=== PATIENT | male | born 1955 | race Caucasian/White ===

== ENCOUNTER 2018-11-13 21:54 | Inpatient (IN) | payer OTHER, MEDICARE ==
[~2018-11-13] VITALS: Ht 180.3 cm; Wt 77.2 kg
[2018-11-13] MEDS ORDERED: AMLO10 PO (22:08)
[2018-11-13] MEDS ORDERED: ROSU5 PO (22:09)
[2018-11-13] MEDS ORDERED: CARV6.25 PO (22:09)
[2018-11-13] MEDS ORDERED: Isosorbide Mono30 MG PO (22:09)
[2018-11-13] MEDS ORDERED: ASPI81CH PO (22:09)
[2018-11-13 22:17] LABS: BASOPHILS ABSOLUTE AUTO 0.11 K/mm3 (0.00-0.23); BASOPHILS PERCENT AUTO 1 % (0-2); EOSINOPHILS ABSOLUTE AUTO 0.89 K/mm3 (0.00-0.68); EOSINOPHILS PERCENT AUTO 7 % (0-6); Hematocrit 42.3 % (37.0-53.0); Hemoglobin 14.2 g/dL (13.5-17.5); IMMATURE GRAN ABSOLUTE AUTO 0.03 K/mm3 (0.00-0.10); IMMATURE GRAN PERCENT AUTO 0 % (0-1); LYMPHOCYTES ABSOLUTE AUTO 4.81 K/mm3 (0.84-5.20); LYMPHOCYTES PERCENT AUTO 38 % (21-46); MONOCYTES ABSOLUTE AUTO 1.13 K/mm3 (0.16-1.47); MONOCYTES PERCENT AUTO 9 % (4-13); Mean Corpuscular HGB Conc 33.6 g/dL (31.5-36.5); Mean Corpuscular Volume 95 fL (80-100); Mean Platelet Volume 10.8 fL (9.1-12.4); NEUTROPHILS ABSOLUTE AUTO 5.68 K/mm3 (1.96-9.15); NEUTROPHILS PERCENT AUTO 45 % (41-73); Platelet Count 213 K/mm3 (150-400); RDW Coefficient Variation 12.6 % (11.7-14.2); RDW Standard Deviation 44.4 fL (35.1-46.3); Red Blood Cell Count 4.44 M/mm3 (4.30-5.90); White Blood Cell Count 12.65 K/mm3 (4.00-11.30)
[2018-11-13 22:41] LABS: Alanine Aminotransfer (ALT/SGP 19 U/L (12-78); Albumin, Blood 3.4 g/dL (3.4-5.0); Alk Phos 71 U/L (50-136); Anion Gap 4 mmol/L (6-16); Aspartate Aminotrans (AST/SGOT 15 U/L (12-37); Bilirubin, Total 0.4 mg/dL (0.1-1.0); Blood Urea Nitrogen 27 mg/dL (8-24); Bun/Creatinine Ratio 14.5 (12.0-20.0); CO2, Blood 26 mmol/L (21-32); Calcium, Blood 8.5 mg/dL (8.5-10.1); Chloride, Blood 113 mmol/L (98-108); Creatinine, Blood 1.86 mg/dL (0.60-1.20); Globulin, Blood 3.4 g/dL (2.2-4.0); Glomerular Filtration Rate 39 (60-); Glucose, Blood 100 mg/dL (70-99); Potassium, Blood 4.2 mmol/L (3.5-5.5); Sodium, Blood 143 mmol/L (136-145); Total Protein, Blood 6.8 g/dL (6.4-8.2); Troponin I <0.015 ng/mL (0.000-0.040)
[2018-11-13 22:57] LABS: International Normalized Ratio 0.96; Prothrombin Time Results 10.2 Sec (9.7-11.5)
--- NOTE | 2018-11-13 23:24 | NUR ---
REPORT RECEIVED FROM BRIAN HUGGINS RN
--- NOTE | 2018-11-13 23:54 | NUR ---
NOTIFIED MD: NOTIFIED DR. COOK THAT D-DIMER ELEVATED AT 0.68. ASKED IF HE STILL WANTS THE HEPARIN GTT OFF AND HE SAID YES, KEEP IT OFF. ASKED IF HE WANTED A CT SCAN, HE SAID NO, JUST TO MONITOR AT THIS POINT. STATES THAT HE FEELS THAT THE ELEVATED D-DIMER IS IN RESPONSE TO HIM BEING HTN.
[2018-11-14 06:12] LABS: Hematocrit 44.1 % (37.0-53.0); Hemoglobin 14.8 g/dL (13.5-17.5); Mean Corpuscular HGB 31.2 pg (26.0-34.0); Mean Corpuscular HGB Conc 33.6 g/dL (31.5-36.5); Mean Corpuscular Volume 93 fL (80-100); Mean Platelet Volume 10.5 fL (9.1-12.4); Platelet Count 205 K/mm3 (150-400); RDW Coefficient Variation 12.5 % (11.7-14.2); Red Blood Cell Count 4.74 M/mm3 (4.30-5.90); White Blood Cell Count 13.45 K/mm3 (4.00-11.30)
--- NOTE | 2018-11-14 06:21 | NUR ---
SUMMARY SINCE ARRIVAL TO ICU, BLOOD PRESSURE HAS BEEN SLIGHTLY ELEVATED BUT NOT REQUIRING NITRO DRIP. MANAGED WITH PO METOPROLOL. SEE FLOWSHEET. HR 60'S. PT HAS HAD NO FURTHER EPISODES OF SHORTNESS OF BREATH OR CHEST PAIN. THIS MORNING PT REPEATEDLY STATING, "I'M READY TO GO HOME. I FEEL GREAT." PT CALLING APPROPRIATELY FOR NEEDS.
[2018-11-14 06:32] LABS: Albumin, Blood 3.5 g/dL (3.4-5.0); Bilirubin, Total 0.6 mg/dL (0.1-1.0); Bun/Creatinine Ratio 15.2 (12.0-20.0); Calcium, Blood 8.9 mg/dL (8.5-10.1); Creatinine, Blood 1.45 mg/dL (0.60-1.20); Globulin, Blood 3.5 g/dL (2.2-4.0); Potassium, Blood 4.2 mmol/L (3.5-5.5)
[2018-11-14 06:45] LABS: Troponin I 0.583 ng/mL (0.000-0.040)
--- NOTE | 2018-11-14 07:33 | NUR ---
ASSUMED CARE: PT RESTING QUIETLY IN BED. VSS. DENIES CHEST PAIN. DR SANTANA AT BEDSIDE AT THIS TIME.
--- NOTE | 2018-11-14 08:16 | NUR ---
DR SANTANA LEFT PT'S ROOM AND STATED PT WAS HAVING CP 03/07. WENT IN TO SEE PT AND PT STATED CHEST PAIN WAS VARYING BETWEEN 3/10 AND 8/10. EKG DONE AND IN CHART, SHOWN TO DR SANTANA. DR SANTANA SPOKE WITH DR CATHERINE FOR CARDIOLOGY CONSULT. PT NPO
--- NOTE | 2018-11-14 09:52 | NUR ---
HEPARIN GTT STARTED AT 0810 WITH BAG THAT WAS STOPPED LAST PM. VERIFIED WITH SARMAD WADSWORTH. PT HAS NO C/O CHEST PAIN AT THIS TIME. AND PT HAVE BEEN GIVEN UPDATES, AWAITING CARDIOLOGY. NPO EXCEPT MEDS AT THIS TIME.
--- NOTE | 2018-11-14 10:21 | NUR ---
PT CONTINUES TO C/O CHEST PAIN UP TO 11/05. CALL TO DR SANTANA. INSTRUCTIONS TO PUT PT BACK ON NITRO GTT UNTIL CARDIOLOGY CONSULTS ON PT.
--- NOTE | 2018-11-14 10:42 | NUR ---
ECHOCARDIOGRAM COMPLETED
--- NOTE | 2018-11-14 12:30 | NUR ---
DR CATHERINE CAME TO SEE PT AND STATED THAT PT WOULD BE ADDED ON TO SCHEDULE, HOPEFULLY TO BE DONE TODAY. ORDERS FOR ANTIALLERGY MEDS DUE TO ALLERGY TO IODINE. CALL TO HEART CENTER TO HAVE STAFF GIVE HOUR HEADSUP BEFORE PROCEDURE IN ORDER TO GIVE BENADRYL PER ORDERS. PT AND STAFF AWARE AND REQUESTED MEDICATIONS FOR ANXIETY. CALL TO DR SANTANA, AWAITING NEW ORDERS
--- NOTE | 2018-11-14 15:31 | NUR ---
PT TAKEN TO HEART CENTER FOR PROCEDURE AT THIS TIME. FAMILY AWARE
[2018-11-14 15:51] LABS: Troponin I 0.545 ng/mL (0.000-0.040)
--- NOTE | 2018-11-14 18:19 | NUR ---
SHIFT SUMMARY: PT RETURNED FROM TOWEL ROLLING MACHINE OPERATOR AT 1717. NITRO GTT RUNNING, PT STATES CP 2-05/05. CONFUSED, LETHARGIC. BPS NOTED TO BE 170S SYSTOLIC. CALL TO DR STEIN ABOUT BPS. ORDERS TO TITRATE NITRO FOR SBP 140S. BED ALARM ON FOR CONFUSION, TR TO RIGHT WRIST, NO BRUISING OR HEMATOMA AT THIS TIME. FAMILY AT BEDSIDE
--- NOTE | 2018-11-14 21:00 | NUR ---
AGITATION/CONFUSION RESPONDED TO BED ALARM GOING OFF. UPON ENTERING ROOM, PT GETTING OUT OF BED, PULLING ON WIRES/LINES. ATTEMPTED TO REDIRECT PATIENT. PT BECAME AGITATED, YELLING AND SWINGING AT STAFF. EVENTUALLY ABLE TO REDIRECT PT TO SIT AT EDGE OF BED AFTER DISCONTINUING ALL IV AND MONITOR LINES. PT UNSURE OF DAY, LOCATION OR SITUATION. PT PARANOID WHEN STAFF ATTEMPTS TO APPROACH HIM. CALLED AND TO BEDSIDE AND ABLE TO REDIRECT PT TO BED. UPDATED DR. STEIN, TITLE I COORDINATOR THAT PT CURRENTLY REFUSING ALL MONITORS AND MEDICATION. ONE TIME DOSE OF HALDOL GIVEN. AFTER HALDOL WAS GIVEN, PT CONTINUED TO BE PARANOID AND TEARFUL BUT DROWSY. ALLOWING TO TALK WITH HIM AND BE CLOSE BUT BECOMES EXTREMELY AGITATED AND PARANOID WHEN STAFF ATTEMPT TO. PT WILL ANSWER A FEW QUESTIONS AT A TIME WITH ONE WORD ANSWERS BUT DISENGAGES AFTER A FEW QUESTIONS. THOUGH PT NOT FOLLOWING RADIAL ACCESS SITE PRECAUTIONS, SITE CONTINUES TO BE CLEAN, DRY AND IN TACT. NO SIGN OF HEMATOMA. PT LEFT WITH BED ALARM IN PLACE, CALL LIGHT IN REACH.
--- NOTE | 2018-11-15 | NUR ---
UPDATE SINCE PREVIOUS NOTE, PT HAS BECOME LESS CONFUSED. HAS LEFT AND PT HAS BEEN RESTING QUIETLY. HE AROUSES EASILY AND STATES HE IS IN [place]. HE IS STILL UNWILLING TO ANSWER ALL ORIENTATION QUESTIONS, BUT IS MAKING OCCASIONAL JOKES. PT DID SET OFF BED ALARM ONCE, AND WHEN ATTEMPTED TO ASSIST HIM USE URINAL HE ONCE AGAIN BECAME AGITATED AND TOLD STAFF TO LEAVE ROOM. PT STATED HE WAS GOING BACK TO SLEEP. A FEW MINUTES AFTER, PT CLIMBING OUT OF BED AND STATES "I AM NOT PEEING WITH YOU IN HERE." SET UP PT WITH URINAL AND ORGANIZED CORS/LINES FOR EASE AND ALLOWED PT PRIVACY. PT STOOD AND USED URINAL SUCCESSFULLY. TR BAND BEING DEFLATED PT ALLOWS. CONTINUES TO HAVE NO SIGNS OF HEMATOMA AND CMS REMAINS IN TACT. PT BACK ON NITROCGLYCERIN DRIP FOR BP MANAGEMENT.
--- NOTE | 2018-11-15 05:58 | NUR ---
SUMMARY SINCE PREVIOUS NOTE, PT HAS SLEPT INTERMITTENTLY, AROUSES EASILY FOR REASSESSMENTS AND HAS ALLOWED ALL CARES TO TAKE PLACE. PT CALM, COOPERATIVE AND ORIENTED. RADIAL CUFF DEFLATED AND OPSITE DRESSING APPLIED. SITE REMAINS SOFT, NONTENDER AND FREE OF HEMATOMA. PT'S BLOOD PRESSURE CONTINUES TO BE ELEVATED THIS MORNING. NITRO TITRATED. SEE FLOWSHEETS. PT ALSO GIVEN MORNING CARDIAC MEDS EARLY PT DID NOT TAKE EVENING DOSES.
--- NOTE | 2018-11-15 07:45 | NUR ---
BEDSIDE REPORT REC'D AND NOW ASSUMING CARE OF PT. PT ALERT AND ORIENTED X3. SOMEWHAT FLAT AFFECT, BUT COOPERATIVE WITH CARE. PT SBA TO USE URINAL/TOILET. LUNGS ARE DIMINISHED T/O, W/ EXP WHEEZES IN THE LLL. HR REGULAR, DISTANT, SR-70'S RANGE. NTG GTT @ 15MCG/MIN TO MANAGE BP'S (SEE VS FLOWSHEET). WILL ATTEMPT TO WEAN OFF NTG, AND CONTROL BP'S WITH PO MEDICATIONS. -FULL CODE STATUS -WEAN NTG GTT -POTENTIAL DISCHARGE TODAY.
[2018-11-15 08:19] LABS: Bun/Creatinine Ratio 21.8 (12.0-20.0); Calcium, Blood 9.2 mg/dL (8.5-10.1); Creatinine, Blood 1.33 mg/dL (0.60-1.20); Potassium, Blood 3.9 mmol/L (3.5-5.5)
--- NOTE | 2018-11-15 12:15 | NUR ---
CALLED DR SANTANA RE: ELEVATED BP'S. ADDED LISINOPRIL 10MG PO NOW AND WILL CONTINUE TO MONITOR BP'S. PT IS VERY EAGER TO BE DISCHARGED HOME AND STATES, "MY BLOOD PRESSURE WOULD IMPROVE IF I WASN'T STUCK IN THIS HOSPITAL BED." DR SANTANA REPORTS PT CAN DISCHARGE HOME IF LISINOPRIL KEEPS HIS SBP 150-160'S OR LESS.
[2018-11-15] MEDS ORDERED: AMLO10 PO (13:54)
[2018-11-15] MEDS ORDERED: Prinivil10 MG PO (13:56)
[2018-11-15] MEDS ORDERED: CLOP75 PO (13:56)
[2018-11-15] MEDS ORDERED: METO50 PO (13:56)
--- NOTE | 2018-11-15 14:25 | NUR ---
PT DISCHARGED VIA W/C BY JEANINE MOTA. TO TRANSPORT PT HOME. PT SENT WITH D/C ORDERS, F/U INSTRUCTIONS, MEDICATIONS, AND PT BELONGINGS SENT WITH PT.
--- NOTE | 2018-11-15 14:27 | NUR ---
DISCHARGE DISCHARGE INSTRUCTIONS PROVIDED TO PT. DISCUSSED IMPORTANCE OF MEDICATION REGIMEN AND KEEPING FOLLOW-UP APPOINTMENTS. IV'S QING'Renetta.
== END 2018-11-15 14:38 | disposition home or self-care (01) | DRG 246 ==
LOC: ER 21:54 → ICUW 21:55
PROVIDERS: Emergency Medicine; Internal Medicine; ADMIT Internal Medicine
PROC: 4A023N7 Measurement of Cardiac Sampling and Pressure, Left Heart, Percutaneous Approach (ICD-10-PCS; principal; 2018-11-14)
PROC: 027034Z Dilation of Coronary Artery, One Artery with Drug-eluting Intraluminal Device, Percutaneous Approach (ICD-10-PCS; 2018-11-14)
PROC: B210YZZ Fluoroscopy of Single Coronary Artery using Other Contrast (ICD-10-PCS; 2018-11-14)
DX: I16.0 Hypertensive urgency (principal); I21.4 Non-ST elevation (NSTEMI) myocardial infarction; I25.10 Atherosclerotic heart disease of native coronary artery without angina pectoris; N18.3 Chronic kidney disease, stage 3 (moderate); I12.9 Hypertensive chronic kidney disease with stage 1 through stage 4 chronic kidney disease, or unspecified chronic kidney disease; J44.9 Chronic obstructive pulmonary disease, unspecified; F12.20 Cannabis dependence, uncomplicated; Z95.5 Presence of coronary angioplasty implant and graft
CPT/HCPCS: 36415; 71045; 80048; 80053; 82550; 83690; 83880; 84484; 85025; 85027; 85347; 85379; 85610; 85730; 93005; 93010; 93306; 93454; 96365; 96375; 99152; 99153; 99285-25; C1725; C1769; C1874; C1887; C1894; C9600; G0378; J1170; J1630; J1644; J1720; J2060; J2250; J2405; J3010; J7030; J7040; J7050; J7512; Q0163; Q9967

== ENCOUNTER 2019-11-28 14:26 | Inpatient (IN) | payer OTHER, MEDICARE ==
[~2019-11-28] VITALS: Ht 182.9 cm; Wt 79.4 kg
[~2019-11-28 14:26] MED LIST: AMLO10 PO; CARV6.25 PO; CLOP75 PO
[2019-11-28 15:07] LABS: BASOPHILS ABSOLUTE AUTO 0.14 K/mm3 (0.00-0.23); BASOPHILS PERCENT AUTO 1 % (0-2); EOSINOPHILS ABSOLUTE AUTO 0.24 K/mm3 (0.00-0.68); EOSINOPHILS PERCENT AUTO 1 % (0-6); Hematocrit 45.7 % (37.0-53.0); Hemoglobin 15.6 g/dL (13.5-17.5); IMMATURE GRAN PERCENT AUTO 1 % (0-1); LYMPHOCYTES ABSOLUTE AUTO 4.88 K/mm3 (0.84-5.20); LYMPHOCYTES PERCENT AUTO 27 % (21-46); MONOCYTES PERCENT AUTO 12 % (4-13); Mean Corpuscular HGB 31.8 pg (26.0-34.0); Mean Corpuscular HGB Conc 34.1 g/dL (31.5-36.5); Mean Corpuscular Volume 93 fL (80-100); NEUTROPHILS ABSOLUTE AUTO 10.62 K/mm3 (1.96-9.15); NEUTROPHILS PERCENT AUTO 58 % (41-73); Platelet Count 258 K/mm3 (150-400); RDW Coefficient Variation 12.3 % (11.7-14.2); RDW Standard Deviation 42.5 fL (35.1-46.3); White Blood Cell Count 18.18 K/mm3 (4.00-11.30)
[2019-11-28 15:48] LABS: Albumin, Blood 3.8 g/dL (3.4-5.0); Albumin/Globulin Ratio 0.9 (0.8-1.8); Bilirubin, Total 0.8 mg/dL (0.1-1.0); Bun/Creatinine Ratio 16.7 (12.0-20.0); Calcium, Blood 9.7 mg/dL (8.5-10.1); Creatinine, Blood 2.09 mg/dL (0.60-1.20); Globulin, Blood 4.1 g/dL (2.2-4.0); Potassium, Blood 4.6 mmol/L (3.5-5.5); Total Protein, Blood 7.9 g/dL (6.4-8.2)
[2019-11-28] MEDS ORDERED: Isosorbide Mono30 MG PO (15:51)
[2019-11-28] MEDS ORDERED: Aspir 8181 MG PO (15:52)
[2019-11-28] MEDS ORDERED: Crestor40 MG PO (15:52)
[2019-11-28] MEDS ORDERED: AMLO10 PO (15:52)
[2019-11-28] MEDS ORDERED: METO50 PO (15:53)
[2019-11-28] MEDS ORDERED: NITR.4SL SL (15:54)
[2019-11-28] MEDS ORDERED: TRAM50 PO (15:55)
[2019-11-28] MEDS ORDERED: ALBU90OI INH (15:55)
[2019-11-28] MEDS ORDERED: ONDA4ODT SL (15:56)
[2019-11-28] MEDS ORDERED: LISI5 PO (16:00)
[2019-11-28 16:01] LABS: Troponin I 12.4 ng/mL (0.000-0.040)
[2019-11-29 01:30] LABS: BASOPHILS ABSOLUTE AUTO 0.09 K/mm3 (0.00-0.23); BASOPHILS PERCENT AUTO 1 % (0-2); EOSINOPHILS ABSOLUTE AUTO 0.13 K/mm3 (0.00-0.68); EOSINOPHILS PERCENT AUTO 1 % (0-6); Hematocrit 43.5 % (37.0-53.0); Hemoglobin 14.8 g/dL (13.5-17.5); IMMATURE GRAN ABSOLUTE AUTO 0.04 K/mm3 (0.00-0.10); IMMATURE GRAN PERCENT AUTO 0 % (0-1); LYMPHOCYTES ABSOLUTE AUTO 3.82 K/mm3 (0.84-5.20); LYMPHOCYTES PERCENT AUTO 27 % (21-46); MONOCYTES ABSOLUTE AUTO 1.54 K/mm3 (0.16-1.47); MONOCYTES PERCENT AUTO 11 % (4-13); Mean Corpuscular HGB 31.4 pg (26.0-34.0); Mean Corpuscular Volume 92 fL (80-100); Mean Platelet Volume 10.4 fL (9.1-12.4); NEUTROPHILS ABSOLUTE AUTO 8.67 K/mm3 (1.96-9.15); NEUTROPHILS PERCENT AUTO 61 % (41-73); Platelet Count 220 K/mm3 (150-400); RDW Coefficient Variation 12.1 % (11.7-14.2); RDW Standard Deviation 41.6 fL (35.1-46.3); Red Blood Cell Count 4.72 M/mm3 (4.30-5.90); White Blood Cell Count 14.29 K/mm3 (4.00-11.30)
[2019-11-29 02:01] LABS: Bun/Creatinine Ratio 20.6 (12.0-20.0); Calcium, Blood 8.9 mg/dL (8.5-10.1); Creatinine, Blood 1.8 mg/dL (0.60-1.20); Potassium, Blood 4.4 mmol/L (3.5-5.5)
[2019-11-29 02:47] LABS: Troponin I 13.5 ng/mL (0.000-0.040)
== END 2019-11-29 16:21 | disposition short-term general hospital (02) | DRG 281 ==
LOC: ER 14:26 → PCU 20:27
PROVIDERS: Emergency Medicine; Nurse Practitioner Acute Care; ADMIT Hospitalist
DX: I22.2 Subsequent non-ST elevation (NSTEMI) myocardial infarction (principal); N17.9 Acute kidney failure, unspecified; I25.110 Atherosclerotic heart disease of native coronary artery with unstable angina pectoris; I21.4 Non-ST elevation (NSTEMI) myocardial infarction; N18.30 Chronic kidney disease, stage 3 unspecified; Z98.1 Arthrodesis status; J44.9 Chronic obstructive pulmonary disease, unspecified; Z95.5 Presence of coronary angioplasty implant and graft; K59.00 Constipation, unspecified; B19.20 Unspecified viral hepatitis C without hepatic coma; Z91.041 Radiographic dye allergy status; I12.9 Hypertensive chronic kidney disease with stage 1 through stage 4 chronic kidney disease, or unspecified chronic kidney disease; E78.5 Hyperlipidemia, unspecified; D72.829 Elevated white blood cell count, unspecified; Z79.82 Long term (current) use of aspirin; Z87.891 Personal history of nicotine dependence
CPT/HCPCS: 36415; 71045; 78580; 80048; 80053; 84484; 85025; 85379; 90670; 93005; 93010; 96374; 96375; 99285-25; A9270; A9270-GY; A9540; J2405; J3010; J7030; Q2038; U0003

== ENCOUNTER 2019-12-10 06:05 | Day surgery (SDC) | payer MEDICARE ==
[~2019-12-10] VITALS: Ht 180.3 cm; Wt 80.0 kg
[~2019-12-10 06:05] MED LIST changes: +ALBU90OI INH; +Aspir 8181 MG PO; +Crestor40 MG PO; +Isosorbide Mono30 MG PO; +LISI5 PO; +METO50 PO; +NITR.4SL SL; +ONDA4ODT SL; +OXYC5 PO; +TRAM50 PO
--- NOTE | 2019-12-10 08:14 | NUR ---
PT RETURNED TO RECOVERY ROOM IN RECLINER WITH RIGHT RADIAL TR BAND IN PLACE WITH WRIST BOARD. RIGHT RADIAL SITE SOFT NON-TENDER WITH NO HEMATOMA, NO PULSATILE BLEEDING AND INTACT DRESSING. PT DENIES CHEST PAIN. PT DRINKING COFFEE AND CALL LIGHT IN REACH.
[2019-12-10] MEDS ORDERED: TICA90TA PO (09:11)
--- NOTE | 2019-12-10 10:12 | NUR ---
5 CC OF AIR REMOVED OVER 13 MIN FROM NOW DEFLATED RIGHT RADIAL TR BAND; NO HEMATOMA, NO PULSATILE BLEEDING SOFT NON-TENDER. DISCHARGE INSTRUCTIONS REVIEWED ALL QUESTIONS ANSWERED.
--- NOTE | 2019-12-10 10:33 | NUR ---
NO CHANGES TO DEFLATED RIGHT TR BAND SITE.
--- NOTE | 2019-12-10 11:12 | NUR ---
DEFLATED RIGHT TR BAND REMOVED AND POLYMEM PLACED OVER RIGHT RADIAL SITE; NO HEMATOMA, NO PULSATILE BLEEDING SOFT NON-TENDER. 20 G IV DISCONTINUED FROM LEFT AC WITH INTACT CANNULA. PT ESCORTED OUT VIA WHEELCHAIR ESCORT.
== END 2019-12-10 11:05 | disposition home or self-care (01) ==
LOC: MHTC 06:05
PROC: B201YZZ Plain Radiography of Multiple Coronary Arteries using Other Contrast (ICD-10-PCS; principal; 2019-12-10)
PROC: 4A023N7 Measurement of Cardiac Sampling and Pressure, Left Heart, Percutaneous Approach (ICD-10-PCS; principal; 2019-12-10)
DX: I21.4 Non-ST elevation (NSTEMI) myocardial infarction (principal); T82.855A Stenosis of coronary artery stent, initial encounter; Y83.1 Surgical operation with implant of artificial internal device as the cause of abnormal reaction of the patient, or of later complication, without mention of misadventure at the time of the procedure; J44.9 Chronic obstructive pulmonary disease, unspecified; Z88.5 Allergy status to narcotic agent; Z91.041 Radiographic dye allergy status; I25.119 Atherosclerotic heart disease of native coronary artery with unspecified angina pectoris; I12.9 Hypertensive chronic kidney disease with stage 1 through stage 4 chronic kidney disease, or unspecified chronic kidney disease; N18.9 Chronic kidney disease, unspecified; K21.9 Gastro-esophageal reflux disease without esophagitis; Z79.899 Other long term (current) drug therapy; Z79.82 Long term (current) use of aspirin; B19.20 Unspecified viral hepatitis C without hepatic coma
CPT/HCPCS: 85347; 92920; 93458; 99152; 99153; C1725; C1769; C1887; C1894; J1200; J1644; J1720; J2250; J3010; J7030; J7050; Q9967

== ENCOUNTER 2021-04-16 14:28 | Inpatient (IN) | payer OTHER ==
[~2021-04-16] VITALS: Ht 182.9 cm; Wt 86.0 kg
[~2021-04-16 14:28] MED LIST changes: -Crestor40 MG PO; +METO25ER PO; -METO50 PO; +ROSU10TA PO; +TICA90TA PO
[2021-04-16 15:06] LABS: BASOPHILS ABSOLUTE AUTO 0.11 K/mm3 (0.00-0.23); BASOPHILS PERCENT AUTO 1 % (0-2); EOSINOPHILS ABSOLUTE AUTO 0.38 K/mm3 (0.00-0.68); EOSINOPHILS PERCENT AUTO 3 % (0-6); Hematocrit 45.9 % (37.0-53.0); Hemoglobin 15.1 g/dL (13.5-17.5); IMMATURE GRAN ABSOLUTE AUTO 0.04 K/mm3 (0.00-0.10); IMMATURE GRAN PERCENT AUTO 0 % (0-1); LYMPHOCYTES ABSOLUTE AUTO 3.65 K/mm3 (0.84-5.20); LYMPHOCYTES PERCENT AUTO 31 % (21-46); MONOCYTES ABSOLUTE AUTO 0.93 K/mm3 (0.16-1.47); MONOCYTES PERCENT AUTO 8 % (4-13); Mean Corpuscular HGB 31.6 pg (26.0-34.0); Mean Corpuscular HGB Conc 32.9 g/dL (31.5-36.5); Mean Corpuscular Volume 96 fL (80-100); Mean Platelet Volume 10.9 fL (9.1-12.4); NEUTROPHILS ABSOLUTE AUTO 6.59 K/mm3 (1.96-9.15); NEUTROPHILS PERCENT AUTO 57 % (41-73); Platelet Count 277 K/mm3 (150-400); RDW Coefficient Variation 13.5 % (11.7-14.2); RDW Standard Deviation 48.5 fL (35.1-46.3); Red Blood Cell Count 4.78 M/mm3 (4.30-5.90)
[2021-04-16 15:22] LABS: Albumin, Blood 3.8 g/dL (3.4-5.0); Bilirubin, Total 0.8 mg/dL (0.1-1.0); Bun/Creatinine Ratio 11.8 (12.0-20.0); Calcium, Blood 9.7 mg/dL (8.5-10.1); Creatinine, Blood 1.44 mg/dL (0.60-1.20); Globulin, Blood 3.8 g/dL (2.2-4.0); Potassium, Blood 4.4 mmol/L (3.5-5.5); Total Protein, Blood 7.6 g/dL (6.4-8.2)
[2021-04-16 18:03] LABS: Influenza A, PCR NEGATIVE (NEGATIVE); Influenza B, PCR NEGATIVE (NEGATIVE); Resp Syncytial Virus, PCR NEGATIVE (NEGATIVE); SARS-Cov-2 (COVID-19) PCR, MMC NEGATIVE (NEGATIVE)
--- NOTE | 2021-04-16 22:07 | NUR ---
CALLED Vidya SERRA REGARDING PT'S NAUSEA. ORDERS ENTERED.
--- NOTE | 2021-04-17 | NUR ---
PT HAD INCREASED HR AND WAS REPORTING SEVERE PAIN. THIS NURSE ASKED PT TO LAY ON BACK SO THAT A PROPER BP COULD BE TAKEN. PT THEN SAT UP AND SLUMMPED OVER, PUPILS DIALTED TO APPROX 5MM. PT HEN BECAME DIAPHORETIC. EKG WAS ORDERED AND PAIN MEDICATION WAS ADMINISTERED. CHARGE NURSE WAS ADVISED.
[2021-04-17 00:58] LABS: Hematocrit 38.1 % (37.0-53.0); Hemoglobin 12.6 g/dL (13.5-17.5); Mean Corpuscular HGB 32.6 pg (26.0-34.0); Mean Corpuscular HGB Conc 33.1 g/dL (31.5-36.5); Mean Corpuscular Volume 98 fL (80-100); Mean Platelet Volume 11.2 fL (9.1-12.4); Platelet Count 232 K/mm3 (150-400); RDW Coefficient Variation 13.5 % (11.7-14.2); RDW Standard Deviation 49.4 fL (35.1-46.3); Red Blood Cell Count 3.87 M/mm3 (4.30-5.90); White Blood Cell Count 19.13 K/mm3 (4.00-11.30)
[2021-04-17 01:15] LABS: Calcium, Blood 9.1 mg/dL (8.5-10.1); Creatinine, Blood 2.5 mg/dL (0.60-1.20); Potassium, Blood 4.4 mmol/L (3.5-5.5)
--- NOTE | 2021-04-17 01:30 | NUR ---
EVENT NOTE FOR 4 013. REQUESTED TO ROOM FOR CONCERNS OF INCREASING PAIN AND DISCOMFORT. PRIMARY RN BERTHA AT THE BEDSIDE AND PT IS ATTEMPTING TO GET UP WHILE HOLDING ABDOMEN AND MOANING. PT WAS GIVEN PRN FENTANYL IV (SEE APR) WITH SOME RELIEF BUT STILL IS CONCERNING FOR INCREASING HEART RATE AND DIAPHORESIS. CALLED LAB TO COME TO ROOM FOR AM DRAW TO CHECK FOR RISK OF INCRESING BLEEDING. BP IS STABLE WITH MAP >65. NOTIFIED ICU SCHEDULING AGENT STASHA OF CONCERNS FOR POSSIBLE NEED TO TRANSFER. SHORTLY AFTERWARD, PAGED THE HOSPITALIST WITH LAB RESULTS. PT SUDDENLY HAD INCREASED TACHYCARDIA AND THEN STARTED TO BRITTNEY DOWN INTO THE 30'S. ARIANNA AND OTHER STAFF ALREADY AT THE BEDSIDE. TOYA NEUMANN CALLED FOR PT BECOMING UNRESPONSIVE AND AGONAL BREATHING. PT THEN STARTED HAVING TACHYCARDIA IN THE 140'S AGAIN AND BECAME MORE ALERT. DR. COOK ARRIVED AT THE BEDSIDE AND ORDERED A TRANSFER TO ICU.
--- NOTE | 2021-04-17 01:44 | NUR ---
AT APPROX 0110 PT'S HR INCREASED TO 140'S. WHEN THIS NURSE ARRIVED INTO ROOM PT SAID HE WAS IN PAIN AND ATTEMPTING TO SIT UP. PT'S HEART RATE DECREASED INTO THE 30'S THEN NO PULSE. CODE BLUE BUTTON WAS PULLED. PT THEN HAD A PULSE IN 120'S. PT DESCRIBED SEVERE PAIN. WAS STABILIZED AND TRANSFERED TO ICU. PT'S WAS CONTACTED AT THE AND WAS NOTIFIED THAT PT WAS TRANSFERED TO ICU.
--- NOTE | 2021-04-17 02:30 | NUR ---
RESPIRATORY CODE IN PCU AT APPROXIMATELY 0115 UPON ENTERING ROOM TO ASSESS PT D/T A CONCERN THAT PT MAY NEED TO BE TRANSFERRED TO HIGHER LEVEL OF CARE; PT SAT STRAIGHT UP IN BED IN [place]ON[place]. WHEN ASKED WHERE HIS PAIN WAS HE GRABBED HIS RIGHT UPPER QUADRANT. PRIMARY RN IN ROOM MEDICATING WITH FENTANYL PER ORDERS FOR PT'S PAIN. PT NOTED TO BE SINUS TACHYCARDIA WITH HR 140'S AND SBP 90'S. UPON LEAVING ROOM TO NOTIFY QA AUTOMATION ENGINEER THAT HOSPITALIST NEEDED CALLED TO ASK FOR ANOTHER CT D/T EXCRUCIATING ABDOMINAL PAIN WITH INCREASED HR AND DROPPED BP; I HEARD HOLLERING FROM ROOM THAT PT'S HR WAS DROPPING. UPON ENTERING ROOM PT WAS AGONAL BREATHING WITH A THREADY PULSE. TOYA NEUMANN CALLED FOR RESPIRATORY CODE AND PT WAS BAGGED VIA AMBU BAG AT 15L OF OXYGEN. PT WAS UNRESPONSIVE. LEAD II ON TELEMETRY NOTED TO HAVE ST ELEVATION. CALLED FOR EKG. UPON PLACING LEADS DR. COOK ARRIVED WITH ORDERS TO TRANSFER TO ICU AND INITIATE A 500CC BOLUS AND CALL PHARMACY FOR LEVOPHED. UPON ARRIVING IN ICU AROUND 0135 PT WAS RESTLESS IN BED. DR. COOK PREPARING TO INTUBATE. RSI MEDICATIONS DRAWN UP; HOWEVER, DR. COOK DIDN'T TRUST BP READING FROM MONITOR D/T PT'S PRESENTATION. MANUAL ATTEMPTED TO BE OBTAINED, BUT DIFFICULT D/T PT MOVING AND THRASHING IN BED. DOPPLER PULSE OBTAINED VIA BRACHIAL SITE WITH SYSTOLIC 60/DOPPLER. LEVOPHED INTIIATED AT 15MCG/MIN AND BOLUS CONTINUES WIDE OPEN. UNABLE TO OBTAIN FURTHER IV ACCESS D/T PT CONTINUING TO THRASH IN BED. DR. COOK PROCEEDED WITH INTUBATION WITH 15MG OF ETOMIDATE AND 80MG OF ROCURONIUM ADMINISTERED. PT THEN BECAME PULSELESS AFTER ETT SECURED. CPR PERFORMED, SEE CODE SHEET FOR MED ADMINISTRATION, RHYTHM CHECKS, AND CPR ROUNDS. ROSC OBTAINED AT 0201. VASOPRESSIN ORDERED. ANOTHER LITER OF NS ORDERED. CENTRAL LINE PLACED TO RIGHT IJ. NEW ORDERS FOR STAT CT SCAN OF HEAD, ABDOMEN, AND PELVIS. FAMILY CALLED AND CURRENTLY AT BEDSIDE AND HAVE ALL OF PT'S BELONGINGS, INCLUDING CELL PHONE AND WALLET TO TAKE HOME. ANANTH LEUNG TO ASSUME CARE OF PATIENT GOING FORWARD.
[2021-04-17 04:36] LABS: Hematocrit 31.4 % (37.0-53.0); Hemoglobin 10.3 g/dL (13.5-17.5)
--- NOTE | 2021-04-17 04:45 | NUR ---
SPOKE WITH DR. MOLINA REGARDING H&H WELL CURRENT VITAL SIGNS AND VASOPRESSOR REQUIREMENT. DR. MOLINA STATED HE WOULD BE COMING IN AND MAKING SOME ARRANGEMENTS
[2021-04-17 06:29] LABS: Source, Urine Foley catheter
[2021-04-17 06:32] LABS: Bilirubin, Urine Neg (Neg); Blood, Urine 4+ (Neg); Glucose Qualitative, Urine 1+ (Neg); Ketones, Urine Neg (Neg); Leukocyte Esterase, Urine 1+ (Neg); Nitrite, Urine Neg (Neg); Protein, Urine 3+ (Neg); Specific Gravity, Urine 1.025 (1.003-1.022); Urobilinogen, Urine NORM (Normal)
[2021-04-17 06:41] LABS: Appearance, Urine Cloudy (Clear); Color, Urine Yellow (P-Yellow)
[2021-04-17 06:44] LABS: Hyaline Casts Rare /lpf (0-2); Squamous Epithelial Cells Few /hpf (Few)
[2021-04-17 06:45] LABS: Bacteria Mod /hpf
--- NOTE | 2021-04-17 07:53 | NUR ---
ACCOMPANIED PT TO OIL DELIVERER WITH TEAM AND DR MOLINA. THIS RN MANAGING VENT, PRESSORS, AND SEDATION. HAVE REPORTED OFF TO ANANTH OWEN WHO TAKES OVER CARE. UPON RETURING TO ICU, THIS RN MET PT'S . SHORT UPDATE OF PT PROCEDURE GIVEN.
--- NOTE | 2021-04-17 08:46 | NUR ---
ASSUME CARE: I assumed care of this pt at 0700. This RN received report from shift supervisor melting RN in airport maintenance laborer while accompanying patient. Pt returned to ICU with RN around 0805.
--- NOTE | 2021-04-17 10:34 | NUR ---
UPDATE: Unable to palpate distal pulses on left foot or find with doppler. Dr Bird called and notified. Dr Gallego notified as well; see new orders for ultrasound.
--- NOTE | 2021-04-17 11:32 | NUR ---
UPDATE: This RN spoke with Due from [facility] [facility] to update her on pt status.
--- NOTE | 2021-04-17 13:19 | NUR ---
UPDATE: Provider called to bedside. Pt's left foot appears slightly more mottled. Radial pulses are now weak and thready. Verbal order for stat H&H.
[2021-04-17 14:06] LABS: Hematocrit 31.1 % (37.0-53.0); Hemoglobin 10.5 g/dL (13.5-17.5)
[2021-04-17 16:41] LABS: Hematocrit 32.1 % (37.0-53.0); Hemoglobin 10.2 g/dL (13.5-17.5)
--- NOTE | 2021-04-17 18:28 | NUR ---
SHIFT SUMMARY: Pt went to salvage laborer for two coils this morning; he tolerated provedure well and pressers were placed on standby for much of the day. Left foot has been intermittantly mottled throughout the day, pulse still absent. Radial pulses were strong at beginning of shift, but have become thready. Patient is arousable on 20 of propofol. He will open his eyes to stimulation and can follow simple commands. Vent settings AC 16/400/5/35%. Pressors were restarted at end of shift due to hypotension.
--- NOTE | 2021-04-17 18:37 | NUR ---
UPDATE: Dr Gallego called at 1835 and notified of pt's hypotension. He instructed RN to restart levophend and vasopressin.
[2021-04-17 19:14] LABS: Base Excess Venous -6.9 mmol/L; Bicarbonate Venous 18.9 mmol/L (24.0-30.0); PCO2 Venous 40.1 mmHg (38-42)
[2021-04-17 19:32] LABS: Bun/Creatinine Ratio 10.8 (12.0-20.0); Calcium, Blood 8.4 mg/dL (8.5-10.1); Creatinine, Blood 3.23 mg/dL (0.60-1.20); Potassium, Blood 5.1 mmol/L (3.5-5.5)
--- NOTE | 2021-04-17 20:31 | NUR ---
ASSUMED PT CARE AT 1900 FROM ANANTH OWEN PT INTUBATED AND SEDATED. PROPOFOL AT 20MCG/KG/MIN. PT ABLE TO GRIMACE TO PAIN, BUT NOT FOLLOW COMMANDS AT THIS TIME. PROCEEDED TO TURN PROPOFOL OFF TO PERFORM SEDATION VACATION. PT ABLE TO OPEN EYES, SQUEEZE HANDS, AND MOVE ALL EXTREMITIES. REORIENTED PT ON WHERE HE WAS AND HIS CONDITION. ASKED IF HE WAS IN PAIN, HE NODDED "YES". OBTAINED FENTANYL TO MEDICATE AND UPON ENTERING ROOM PT HAD AHOLD OF HIS ETT SECUREMENT DEVICE ATTEMPTING TO SELF EXTUBATE. PT RESEDATED WITH PROPOFOL TURNED UP TO 40MCG/KG/MIN. RESTRAINTS MOVED FURTHER DOWN THE BED TO LIMIT ROM AND RESPIRATORY THERAPY RESECURED ETT TUBE AND ADHESIVE. DR. VILLAGRAN AT BEDSIDE SHORTLY AFTER INCIDENT OCCURRED; NO NEW ORDERS. CENTRAL LINE TO RIGHT IJ WITH PROPOFOL CURRENTLY INFUSING AT 30MCG/KG/MIN. LEVOPHED AND VASOPRESSIN OFF AT THIS TIME D/T SBP 110-120'S. VENT: AC/VC+ 16, VT 500, IT 0.90, PEEP 5, FIO2 35%, SPO2 99%, RR 16-20. RIGHT FEMORAL SITE IS SOFT UPON PALPATION WITH NO SIGNS OF HEMATOMA; ANGIOSEAL CLOSURE DEVICE USED; DISTAL PULSES ARE OBTAINED VIA DOPPLER. RIGHT FOOT IS COLD AND PALE. LEFT FOOT UNABLE TO OBTAIN PEDAL OR TIBIAL PULSES VIA DOPPLER; HOWEVER, WAS ABLE TO OBTAIN LEFT POPLITEAL PULSE VIA DOPPLER. LEFT FOOT IS CYANOTIC AND PALE WITH POOR CAPILLARY REFILL. DR MOLINA IS AWARE WITH PLANS TO RETURN TO FLAME CUTTING MACHINE OPERATOR HELPER PER REPORT. OG HOOKED TO LIS; HOWEVER, PLACED ON STANDBY FOR MED ADMINISTRATION. TEMP QUEZADA CATHETER IS PATENT AND DRAINING CLOUDY YELLOW URINE WITH SEDIMENT TO GRAVITY. NEW ORDERS FROM DR. VILLAGRAN TO START LR AT 200ML/HR X1 LITER D/T CREATININE. NEW ORDERS OBTAINED FOR ELECTROLYTE REPLACEMENT PROTOCOL WELL. SEE SHIFT SUMMARY FOR FURTHER DETAILS.
[2021-04-18 03:51] LABS: BASOPHILS ABSOLUTE AUTO 0.05 K/mm3 (0.00-0.23); BASOPHILS PERCENT AUTO 0 % (0-2); EOSINOPHILS PERCENT AUTO 0 % (0-6); Hematocrit 26.6 % (37.0-53.0); IMMATURE GRAN ABSOLUTE AUTO 0.16 K/mm3 (0.00-0.10); IMMATURE GRAN PERCENT AUTO 1 % (0-1); LYMPHOCYTES PERCENT AUTO 8 % (21-46); MONOCYTES ABSOLUTE AUTO 1.71 K/mm3 (0.16-1.47); MONOCYTES PERCENT AUTO 6 % (4-13); Mean Corpuscular HGB 32.3 pg (26.0-34.0); Mean Corpuscular HGB Conc 33.8 g/dL (31.5-36.5); Mean Corpuscular Volume 95 fL (80-100); Mean Platelet Volume 11.4 fL (9.1-12.4); NEUTROPHILS ABSOLUTE AUTO 22.64 K/mm3 (1.96-9.15); NEUTROPHILS PERCENT AUTO 85 % (41-73); Platelet Count 167 K/mm3 (150-400); RDW Coefficient Variation 14.1 % (11.7-14.2); Red Blood Cell Count 2.79 M/mm3 (4.30-5.90); White Blood Cell Count 26.76 K/mm3 (4.00-11.30)
[2021-04-18 04:23] LABS: Albumin, Blood 2.8 g/dL (3.4-5.0); Bilirubin, Total 0.5 mg/dL (0.1-1.0); Bun/Creatinine Ratio 12.1 (12.0-20.0); Calcium, Blood 8.4 mg/dL (8.5-10.1); Creatinine, Blood 3.4 mg/dL (0.60-1.20); Magnesium, Blood 2.4 mg/dL (1.6-2.4); Phosphorus, Blood 5.7 mg/dL (2.5-4.9); Potassium, Blood 4.8 mmol/L (3.5-5.5)
[2021-04-18 04:27] LABS: Albumin/Globulin Ratio 1.1 (0.8-1.8); Globulin, Blood 2.5 g/dL (2.2-4.0)
[2021-04-18 04:37] LABS: Total Protein, Blood 5.3 g/dL (6.4-8.2)
--- NOTE | 2021-04-18 06:14 | NUR ---
END OF SHIFT SUMMARY NO SIGNIFICANT CHANGES SINCE LAST ENTRY. KEPT PT SEDATED ON PROPOFOL AT 40MCG/KG/MIN. ADJUNCT MEDICATION FOR PAIN WITH FENTANYL 50MCG X2 THIS SHIFT. VENT REMAINS AC/VC + 16, VT 500, IT 0.90, PEEP 5, FIO2 35%, RR 16-20'S, SPO2 >90%. PT REMAINS SINUS TACHYCARDIC WITH HR 117; BP'S STABLE, SEE FLOWSHEET. VASOPRESSORS REMAIN OFF AT THIS TIME. MINIMAL URINE OUTPUT THIS SHIFT WITH A TOTAL OF 200CC OF CLOUDY, YELLOW URINE. TEMP UP TO 98.2 WITH WARM BLANKETS. LOW OF 95.6. BILATERAL SOFT WRIST RESTRAINTS REMAIN IN PLACE. RIGHT FEMORAL SITE REMAINS SOFT WITH NO SIGNS OF HEMATOMA. PULSES AND COLOR REMAIN UNCHANGED TO BILATERAL LOWER EXTREMITIES. WILL CONTINUE TO MONITOR UNTIL REPORT IS HANDED OFF TO ONCOMING RN.
--- NOTE | 2021-04-18 06:53 | NUR ---
SPOKE WITH DR. COOK CONCERNED REGARDING PT'S ELEVATED WBC WITH HR NOW 130-140'S. BP'S REMAIN STABLE, BUT SOFT. PT DID RECEIVE ROCEPHIN LAST NIGHT IV; HOWEVER, CONCERN FOR INFECTION. ORDERS OBTAINED FOR BLOOD CX, WELL A ONE TIME DOSE OF DILAUDID.
--- NOTE | 2021-04-18 08:15 | NUR ---
ASSUMED CARE: REPORT RECEIVED FROM ARIANNA Stanford RN. ASSUMED CARE OF THIS PT AT APPROX 0700. ON ASSESSMENT, THE PT IS SEDATED W/ PROPOFOL. APPEARS UNCOMFORABLE W/ HR INCREASED TO 140s & RR INCREASED TO 40s. ONE TIME DOSE DILAUDID GIVEN PER ORDERS W/ IMPROVEMENT NOTED. RR DECREASED TO 20s & HR DECREASED TO 120s. PT GRIMACES TO PAINFUL STIMULUS, IS NOT FOLLOWING DIRECTIONS OR OPENING EYES AT THIS TIME. VENT SETTINGS: AC/VC+ 16/500/0.9/5/35% W/ O2 SATS > 92%. LS CLEAR T/O, DIM IN BASES. MONITOR SHOWS ST W/ HR 120s, SBP DECREASED TO 90s AFTER DILAUDID DOSE, MAP > 65. OGT IN PLACE TO LIS. TEMP QUEZADA PATENT/ DRAINING CLOUDY YELLOW URINE. SKIN CONDITION OVERALL INTACT, PALE T/O W/ COOL EXTREMITIES. BLOOD CX x2 SENT THIS AM, FIRST DRAWN FROM CL TO R IJ, SECOND DRAWN FROM PERIPHERAL STICK. WILL CONTINUE TO MONITOR & UPDATE NEEDED.
[2021-04-18 10:19] LABS: Hematocrit 26.2 % (37.0-53.0); Hemoglobin 8.6 g/dL (13.5-17.5)
--- NOTE | 2021-04-18 10:48 | NUR ---
DR ROMO: PROVIDER AT BEDSIDE TO EVAL PT. DISCUSSED PT's DECREASED H&H & INCREASED HR THIS AM. HE STS TO DRAW ANOTHER H&H AT 1000. FOLLOW-UP H&H RESULTS REPORTED TO DR ROMO, NO CHANGE TO PLAN OF CARE CURRENTLY.
--- NOTE | 2021-04-18 12:55 | NUR ---
DR ROMO: PROVIDER AT BEDSIDE AGAIN TO EVAL PT. 1L LR HAS BEEN GIVEN VIA IV BOLUS. PT's HR DECREASED FROM 120s TO LOW 100s & SBP INCREASED FROM 80s TO 100s. AT TIME OF FLUID BOLUS BEING ORDERED, PT HAS APPROX 30 ML CLOUDY YELLOW URINE W/ COPIOUS AMNTS SEDIMENT NOTED IN QUEZADA UROMETER. URINE OUTPUT INCREASED W/ AN ADDITIONAL 10 ML OUTPUT NOTED SINCE FLUID BOLUS STARTED. THIS HAS BEEN DISCUSSED W/ PROVIDER & MAINTAINENCE IVFs ORDERED PER EMAR. SEDATION BEING TITRATED DOWN FOR SBT TO SEE IF PT IS SUITABLE FOR EXTUBATION THIS AFTERNOON - SEE FLOWSHEET.
--- NOTE | 2021-04-18 14:55 | NUR ---
Initial Interview with [facility] Community Account Manager [employer] 1. Who did you speak with? Spoke with patient's spouse Rodríguez (she was at bedside) 2. What is the patient's prior level of functions? Patient lives independently with spouse. Patient is able to perform ADLs independently without need for DME. [place] if needed. Patient has two dogs and a cat at the residence 3. Is the patient and/or family able to provide transportation to and from doctor's appointments and bead picker prescriptions? Patient has an active stud driver's license and has a privately owned vehicle. He is able to provide transportation to and from appointments and bead picker medication from pharmacy as needed. 4. Does patient still drive? Yes 5. POA/PCP/NOK: Spouse Rodríguez [phone] 6. Discharge goals: Date TBD -Correction Facility: No preference -DME: TBD -Medication Management: self manages -[facility] -Housekeeping/Cooking: /patient performs housekeeping and cooking 7. List barriers to discharge: None known at this time 8. Discharge Plan: TBD 9. PCP Follow up appointment: Will be scheduled within seven calendar days of discharge 10. Other Notes: patient is not a . Explained importance of hospital follow-up with PCP within 7 days of discharge. Numbers confirmed: [phone]. Patient is a with 70 percent service connected disability (unemployable).
--- NOTE | 2021-04-18 15:25 | NUR ---
SBT: THE PT HAS BEEN LIGHTLY SEDATED W/ PROPOFOL & ON SPONTANEOUS VENT SETTINGS SINCE APPROX 1320. HE IS TOLERATING WELL W/ ADEQUATE TIDAL VOLUMES & RR 20s. HE OPENS EYES TO VERBAL DIRECTION & IS ABLE TO SQUEEZE THIS RNs HAND WHEN PROMPTED. DR ROMO STS OKAY TO EXTUBATE PT THIS AFTERNOON. JANET Woo, RT, HAS BEEN MADE AWARE OF THIS.
--- NOTE | 2021-04-18 16:02 | NUR ---
EXTUBATION: PT AWAKE & FOLLOWING DIRECTIONS. JANET Woo RT, AT BEDSIDE FOR EXTUBATION. PT EXTUBATED AT 1550 & PLACED ON 5L NC. OGT ALSO REMOVED AT THIS TIME. THE PT IS TOLERATING WELL W/ O2 SATS 92-94% & RR 18-24. HR 110s & BP STABLE.
--- NOTE | 2021-04-18 17:40 | NUR ---
SHIFT SUMMARY: NO ACUTE CHANGES SINCE PRIOR UPDATES. PT REMAINS ALERT/ ORIENTED TO SELF, FOLLOWING DIRECTIONS. REMAINS FORGETFUL TO SITUATION & NEEDS SOME REORIENTATION TO CARE MEASURES. LS CLEAR T/O, DIM IN BASES. PT ON 5L NC W/ O2 SATS > 92%. MONITOR SHOWS ST W/ HR 100s, BP STABLE. HTN INCREASED W/ PT's C/O PAIN. PT NPO S/P EXTUBATION. QUEZADA PATENT/ DRAINING SCANT AMNTS OF CLOUDY URINE W/ COPIOUS SEDIMENT. URINE OUTPUT INCREASING SINCE IVFs. SKIN CONDITION OVERALL FRAGILE, PALE, COOL TO TOUCH. Q2H REPOSITIONING TO MAINTAIN SKIN INTEGRITY. WILL CONTINUE TO MONITOR & REPORT OFF TO ONCOMING RN.
--- NOTE | 2021-04-18 21:41 | NUR ---
ASSUMPTION OF CARE RECEIVED REPORT FROM ANANTH LAWRENCE AT 1900. PT S/P EXTUBATION EARLIER TODAY AROUND 1500. HE IS ALERT AND ORIENTED TO SELF ONLY AND DOES NOT REMEMBER EVENTS DURING HOSPITAL STAY. HE IS ABLE TO FOLLOW COMMANDS AND IS COOPERATIVE. ON 5L NC, SPO2 >96%, LUNGS ARE COARSE T/O, RR IN 20-30'S. HE HAS A PRODUCTIVE COUGH, BUT HAS SOME DIFFICULTY EXPECTORATING SPUTUM D/T PAIN FROM CPR ON 04/17/20. MEDICATING WITH PRN FENTANYL. HR IS ST WITH RATE IN 110-120'S, BP STABLE. PULSES DOPPLER ONLY TO RLE, ABSENT TO LLE, MD IS AWARE. ABDOMEN IS MILDLY DISTENDED AND VERY TENDER, ESPECIALLY IN RUQ. BT HYPOACTIVE. TEMP QUEZADA PATENT, DRAINING CLOUDY, YELLOW URINE. SKIN IS OVERALL C/D/I, PALE AND EXTREMITIES COOL TO TOUCH. FEBRILE AT 99.0. R IJ IN PLACE, INFUSING LR AT 125ML/HR. ORDERS REVIEWED, WILL TREAT PRESCRIBED.
--- NOTE | 2021-04-19 02:17 | NUR ---
PT CONTINUES TO COMPLAIN OF "CRITICAL" PAIN IN RUQ AND CHEST R/T CPR, DESPITE Q1H FENTANYL. CALL TO DR. COOK AND ORDERS FOR DILAUDID 1MG IV Q6H PRN FOR 3 DOSES GIVEN.
[2021-04-19 04:29] LABS: Hematocrit 21.9 % (37.0-53.0); Hemoglobin 7.5 g/dL (13.5-17.5); Mean Corpuscular HGB 33.2 pg (26.0-34.0); Mean Corpuscular HGB Conc 34.2 g/dL (31.5-36.5); Mean Corpuscular Volume 97 fL (80-100); Mean Platelet Volume 11.6 fL (9.1-12.4); NRBC ABSOLUTE 0.22 K/mm3 (0.00-0.02); NRBC Auto 0.9 /100 WBC (0.0-0.2); Platelet Count 157 K/mm3 (150-400); RDW Coefficient Variation 14.4 % (11.7-14.2); RDW Standard Deviation 50.6 fL (35.1-46.3); Red Blood Cell Count 2.26 M/mm3 (4.30-5.90); White Blood Cell Count 24.44 K/mm3 (4.00-11.30)
[2021-04-19 04:50] LABS: BAND PERCENT MAN 23 % (0-8); BASOPHILS PERCENT MAN 0 % (0-2); EOSINOPHILS PERCENT MAN 0 % (0-6); LYMPHOCYTES ABSOLUTE MAN 2.19 K/mm3 (0.84-5.20); LYMPHOCYTES PERCENT MAN 9 % (21-46); MONOCYTES ABSOLUTE MAN 1.46 K/mm3 (0.16-1.47); MONOCYTES PERCENT MAN 6 % (4-13); NEUTROPHILS ABSOLUTE MAN 20.77 K/mm3 (1.96-9.15); SEG NEUTROPHILS PERCENT MAN 62 % (41-73); TOTAL CELLS COUNTED 100
[2021-04-19 04:51] LABS: Bun/Creatinine Ratio 12.5 (12.0-20.0); Calcium, Blood 8.1 mg/dL (8.5-10.1); Creatinine, Blood 4.09 mg/dL (0.60-1.20); Magnesium, Blood 2.2 mg/dL (1.6-2.4); Phosphorus, Blood 5.1 mg/dL (2.5-4.9); Potassium, Blood 4.8 mmol/L (3.5-5.5)
--- NOTE | 2021-04-19 06:52 | NUR ---
PT HAD NO ACUTE EVENTS THIS SHIFT. SLEPT OFF AND ON DUE TO INCREASED PAIN FROM CPR AND RUQ PAIN. REQUIRED CONSISTENT Q1H FENTANYL DOSING TO MANAGE PAIN, DILAUDID 1M 16H PRN X3 DOSES ADDED. HE IS ALERT AND ORIENTED TO SELF AND HOSPITAL ONLY. CONTINUED TO REORIENT T/O THE NIGHT. THIS MORNING HE ATTEMPTED TO GET OUT OF BED, STATING HE HAD TO PEE. REMINDED MULTIPLE TIMES HE HAS CATHETER IN PLACE. HE FOLLOWS COMMANDS WELL AND IS COOPERATIVE WITH CARE. HR REMAINS SINUS TACH WITH RATE IN 120-130'S, WILL INCREASE TO 140-150'S WITH INCREASED PAIN. BP STABLE, HYPERTENSIVE AT TIMES R/T INCREASED PAIN LEVELS. 4L NC AND SPO2 >96%, HE CONTINUES TO COUGH UP THICK, RIDER SECRETIONS. QUEZADA PATENT, 400ML CLOUDY YELLOW URINE OUT. FEBRILE WITH TMAX OF 100.5. EXTREMITIES REMAIN COOL TO TOUCH, PULSES UNCHANGED. WILL REPORT TO ONCOMING SHIFT WHEN AVAILABLE.
--- NOTE | 2021-04-19 07:15 | NUR ---
ASSUMED CARE: REPORT RECEIVED FROM MYCHAL Jackson RN. ASSUMED CARE OF THIS PT AT APPROX [id number]. ON ASSESSMENT, THE PT IS AWAKE & CRYING OUT IN PAIN. HE IS ORIENTED TO SELF & FOLLOWING DIRECTIONS, FORGETFUL OF LOCATION & EVENT. LS COARSE IN RUL, OTHERWISE CLEAR. ON 4L NC W/ O2 SATS > 95%. MONITOR SHOWS ST W/ HR 110-120S ON AVG, INCREASED TO 130-140s W/ PT C/O PAIN. HTN ALSO INCREASED DURING C/O PAIN. PT TOLERATING SMALL SIPS OF WATER WELL & ABLE TO TAKE PO MEDICATIONS W/O DIFFICULTY, PER REPORT. TEMP QUEZADA PATENT/ DRAINING CLOUDY YELLOW URINE W/ COPIOUS AMNTS OF SEDIMENT NOTED. OUTPUT INCREASED SLIGHTLY SINCE YESTERDAY. SKIN CONDITION OVERALL PALE, COOL, INTACT. Q2H REPOSITIONING TO MAINTAIN SKIN INTEGRITY. WILL CONTINUE TO MONITOR & UPDATE NEEDED.
--- NOTE | 2021-04-19 07:55 | NUR ---
PROVIDER UPDATE: CALL FROM [facility]. HE HAS NOTIFIED THIS RN THAT ORDERS ARE PLACED FOR A CT W/O CONTRAST OF THIS PT's ABDOMEN. HE IS CONCERNED THAT THE PT MAY STILL BE BLEEDING BUT DUE TO POOR RENAL FUNCTION, DOES NOT BELIEVE THE PT SHOULD RETURN TO [facility] FOR FOLLOW-UP PROCEDURE AT THIS TIME. HE WILL COME SEE THE PT LATER THIS SHIFT ONCE CT SCAN RESULTED.
[2021-04-19 14:08] LABS: Albumin, Blood 2.5 g/dL (3.4-5.0); Anion Gap 11 mmol/L (6-16); Blood Urea Nitrogen 51 mg/dL (8-24); CO2, Blood 20 mmol/L (21-32); Calcium, Blood 8.3 mg/dL (8.5-10.1); Chloride, Blood 110 mmol/L (98-108); Creatinine, Blood 3.93 mg/dL (0.60-1.20); Glomerular Filtration Rate 15 (60-); Glucose, Blood 95 mg/dL (70-99); Sodium, Blood 141 mmol/L (136-145)
--- NOTE | 2021-04-19 18:21 | NUR ---
SHIFT SUMMARY: NO ACUTE CHANGES SINCE PRIOR UPDATES. THE PT IS RECEIVING HIS SECOND UNIT OF PRBCs PER DR CURRIE's ORDERS. H&H TO BE DRAWN 30 MINS AFTER SECOND UNIT COMPLETED. 1800 DOSE OF ARANESP HELD PENDING UPDATED H&H RESULTS AT THAT TIME. PT REMAINS ALERT/ ORIENTED TO SELF & FOLLOWING DIRECTIONS, IS OTHERWISE FORGETFUL. RESPONDS WELL TO VERBAL REDIRECTION. LS DIM IN BASES, COARSE AT TIMES DURING THIS SHIFT BUT PT IS ABLE TO COUGH & EXPECTORATE SPUTUM WELL. MONITOR SHOWS ST W/ HR 110-140s THIS SHIFT. HTN INCREASED W/ PT C/O PAIN. PT CONTINUES TO HAVE C/O RUQ & CHEST PAIN INTERMITTENTLY. FENTANYL CAR WORKER IN USE BY PT, ALTHOUGH HE DOES NEED REMINDERS TO CLICK THE BUTTON WHEN HAVING PAIN. TEMP QUEZADA PATENT/ DRAINING YELLOW CLOUDY URINE W/ COPIOUS AMNTS SEDIMENT. URINE OUTPUT CONTINUES TO INCREASE THIS SHIFT. DR ARIZMENDI HAS BEEN CONSULTED FOR PT's CURRENT ARF. SKIN CONDITION OVERALL INTACT, FRAGILE. Q2H REPOSITIONING TO MAINTAIN SKIN INTEGRITY. WILL CONTINUE TO MONITOR & REPORT OFF TO ONCOMING RN.
--- NOTE | 2021-04-19 20:51 | NUR ---
ASSUMED CARE @1900 PATIENT IS ALERT AND ORIENTED X SELF AND FOLLOWING COMMANDS. COOPERATIVE WITH CARE. 02 SATS 95% ON 4L VIA NC. COUGHING UP MODERATE AMOUNT OF THICK RIDER SPUTUM. USES PILLOW TO BRACE RIBS WHILE COUGHING DUE TO PAIN. HR ST @110-130s, BP STABLE, MORE HYPERTENSIVE WITH COUGHING AND INCREASED PAIN. QUEZADA DRANING CLOUDY, SEDIMENT, YELLOW URINE TO GRAVITY. BLOOD FINISHED TRANSFUSING, WILL RECHECK LABS SCHEDULED. FENTANYL PAPER PATTERN FOLDER PUMP FOR PAIN. SOME ABDOMINAL PAIN WITH PALPATION, FIRM AND TENDER. PATIENT REPOSITOINED AND ORAL CARE DONE. CALL LIGHT IN REACH. SEE SHIFT ASSESSMENT FOR MORE DETAIL.
[2021-04-19 21:30] LABS: Hemoglobin 9.7 g/dL (13.5-17.5)
--- NOTE | 2021-04-19 22:45 | NUR ---
PATIENT COMPLAINING OF INCREASING PAIN. CALLED DR. ROMO. FENTANYL BULK PLANT OPERATOR DOSAGE INCREASED.
[2021-04-20 05:38] LABS: Hematocrit 28.2 % (37.0-53.0); Hemoglobin 9.6 g/dL (13.5-17.5); Mean Corpuscular HGB 32.1 pg (26.0-34.0); Mean Corpuscular Volume 94 fL (80-100); Mean Platelet Volume 11.3 fL (9.1-12.4); NRBC ABSOLUTE 0.38 K/mm3 (0.00-0.02); NRBC Auto 1.7 /100 WBC (0.0-0.2); Platelet Count 142 K/mm3 (150-400); RDW Coefficient Variation 14.7 % (11.7-14.2); RDW Standard Deviation 50.3 fL (35.1-46.3); Red Blood Cell Count 2.99 M/mm3 (4.30-5.90); White Blood Cell Count 22.75 K/mm3 (4.00-11.30)
--- NOTE | 2021-04-20 05:55 | NUR ---
SHIFT SUMMARY PATIENT IS ALERT AND ORIENTED X SELF, PLACE, AND FOLLOWING DIRECTIONS. UNABLE TO STATE YEAR AND STILL CONFUSED AND FORGETFUL. 02 SATS 97% ON 4L VIA NC. LUNGS SOUND CLEAR TO DIMINISHED. COARSE AT TIMES BUT PATIENT IS ABLE TO CLEAR SECRETIONS. HR ST 110-130, BP STABLE, INCREASES WITH PAIN. FENTANYL INTERSTATE BUS DISPATCHER, PATIENT ABLE TO USE INTERSTATE BUS DISPATCHER BUT DOES NEED REMINDERS CONSTANTLY ON HOW IT WORKS. AFTER INCREASING INTERSTATE BUS DISPATCHER DOSE PATIENT WAS ABLE TO SLEEP FOR ACOUPLE HOURS. QUEZADA DRAINING GORDO SEDIMENT URINE, 1100 MLS OUT THIS SHIFT. PATIENT REPOSITIONED Q2 HOURS. CALL LIGHT IN REACH.
[2021-04-20 06:05] LABS: BAND PERCENT MAN 17 % (0-8); BASOPHILS PERCENT MAN 0 % (0-2); EOSINOPHILS PERCENT MAN 0 % (0-6); LYMPHOCYTES ABSOLUTE MAN 2.04 K/mm3 (0.84-5.20); LYMPHOCYTES PERCENT MAN 9 % (21-46); MONOCYTES ABSOLUTE MAN 2.04 K/mm3 (0.16-1.47); MONOCYTES PERCENT MAN 9 % (4-13); NEUTROPHILS ABSOLUTE MAN 18.65 K/mm3 (1.96-9.15); SEG NEUTROPHILS PERCENT MAN 65 % (41-73); TOTAL CELLS COUNTED 100
[2021-04-20 06:06] LABS: Albumin, Blood 2.4 g/dL (3.4-5.0); Albumin/Globulin Ratio 0.9 (0.8-1.8); Bilirubin, Total 0.7 mg/dL (0.1-1.0); Bun/Creatinine Ratio 13.8 (12.0-20.0); Calcium, Blood 8.2 mg/dL (8.5-10.1); Creatinine, Blood 3.62 mg/dL (0.60-1.20); Globulin, Blood 2.8 g/dL (2.2-4.0); Magnesium, Blood 2.2 mg/dL (1.6-2.4); Phosphorus, Blood 4.2 mg/dL (2.5-4.9); Potassium, Blood 4.8 mmol/L (3.5-5.5); Total Protein, Blood 5.2 g/dL (6.4-8.2)
--- NOTE | 2021-04-20 08:10 | NUR ---
ASSUMED CARE REPORT FROM ERIK WADSWORTH AT 0700. PT RESTING IN BED. A&OX 3. UNSURE OF EVENTS IN HOSPITAL, ABLE TO REORIENT. ABLE TO ANSWER MEDICAL QUESTIONS, COMPLETE MRI FORM. LUNGS COARSE, PRODUCTIVE COUGH. INCREASED PAIN c COUGHING, LOCALIZED TO MIDLINE UPPER ABD. 4L VIA NC. BP STABLE. HR 100'S. MEDICATED c METOPROLOL PO. NO DIFFICULTIES SWALLOWING. ABD ROUND, SOFT, TENDER. BT X 4. QUEZADA PATENT, DRAINING GORDO URINE c SEDIMENT TO GRAVITY. BILATERAL PP BY DOPPLER, LLE SLIGHTLY COOLER THAN RIGHT. CVC TO RIJ, DRESSING C/D/I. BICARB AND NS AT 50 ML/HR EACH. FENTANYL RESEARCH GEOLOGIST AT 50 MCG/HR c RESEARCH GEOLOGIST 10 MCG. PLAN FOR MRI THIS SHIFT. WILL CONTINUE TO MONITOR.
[2021-04-20 09:33] LABS: International Normalized Ratio 1.06; Prothrombin Time Results 11.1 Sec (9.7-11.5)
--- NOTE | 2021-04-20 17:17 | NUR ---
SHIFT SUMMARY PT STATUS CHANGED TO PCU THIS SHIFT. TITRATED OFF O2 MID DAY, PLACED ON 2L AT 1700 FOR SATS 88%. PT C/O INCREASED PAIN TO LUE. HX OF ARTERIAL ISCHEMIA c STENT PLACEMENT. PT PULSE BY DOPPLER, DP PULSE SOUNDS MONOPHASIC. DR DINH NOTIFIED, GABAPENTIN ADDED TO NOC MEDS, DR MOLINA NOTIFIED, NO INTERVENTIONS UNTIL PT MORE STABLE. LIVER BIOPSY PLANNED FOR TOMORROW. MRI PENDING ANALYSIS OF PREVIOUS STENTS AND SURGERIES. FENTANYL PATCH ADDED FOR PAIN, DISPATCH CLERK CONTINUES AT 50 MCG/HR, DISPATCH CLERK DOSE 10 MCG. LUNGS COARSE, PRODUCTIVE COUGH. ST, RATE 110-120. BP STABLE. HR AND BP INCREASE c PAIN. QUEZADA REMOVED, 1150 ML OUT THIS SHIFT. DIET ADVANCED, TOLERATING WELL. WILL CONTINUE TO MONITOR UNTIL REPORT TO ONCOMING NURSE.
--- NOTE | 2021-04-20 20:00 | NUR ---
ASSUMPTION OF CARE PT IS A/O X3 NOW, STILL DOES NOT CALL EVENTS LEADING TO HOSPITALIZATION OR CPR. HE IS PLEASANT AND COOPERATIVE, FORGETFUL AT TIMES, BUT OVERALL ABLE TO COMMUNICATE NEEDS WELL. FENTANYL TARE WEIGHER AT 50MCG/HR WITH 10MCG Q10MIN, AND FENTANYL PATCH PLACED THIS AM. HE REPORTS PAIN IN HIS LEFT FOOT, AND CONTINUES TO HAVE SOME PAIN IN CHEST R/T CPR, AND RUQ PAIN THAT WAS PRESENT UPON ADMISSION. ON 2L NC, SPO2 >95%, LUNGS ARE CLEAR WITH SLIGHT EXPIRATORY WHEEZE ON THE RIGHT. RT CALLED FOR ALBUTEROL INHALER PER PT REQUEST. HR IS SINUS TACH, RATE IN 110-120'S. BP IS HYPERTENSIVE, PO METOPROLOL SCHEDULED. HE IS NOW USING A URINAL WITH SOME ASSISTANCE. DOPPLER PULSES IN RLE AND LLE, MONOPHASIC IN LEFT D. PEDIS. CENTRAL LINE TO RIGHT IJ, INFUSING BICARB AT 50ML/HR, NS AT 50ML/HR. ORDERS REVIEWED, WILL TREAT PRESCRIBED.
[2021-04-21 03:44] LABS: BASOPHILS ABSOLUTE AUTO 0.05 K/mm3 (0.00-0.23); BASOPHILS PERCENT AUTO 0 % (0-2); EOSINOPHILS ABSOLUTE AUTO 0.04 K/mm3 (0.00-0.68); EOSINOPHILS PERCENT AUTO 0 % (0-6); Hematocrit 28.5 % (37.0-53.0); Hemoglobin 9.6 g/dL (13.5-17.5); IMMATURE GRAN ABSOLUTE AUTO 0.37 K/mm3 (0.00-0.10); IMMATURE GRAN PERCENT AUTO 2 % (0-1); LYMPHOCYTES ABSOLUTE AUTO 1.88 K/mm3 (0.84-5.20); LYMPHOCYTES PERCENT AUTO 8 % (21-46); MONOCYTES ABSOLUTE AUTO 2.77 K/mm3 (0.16-1.47); MONOCYTES PERCENT AUTO 12 % (4-13); Mean Corpuscular HGB 31.8 pg (26.0-34.0); Mean Corpuscular HGB Conc 33.7 g/dL (31.5-36.5); Mean Corpuscular Volume 94 fL (80-100); Mean Platelet Volume 10.3 fL (9.1-12.4); NEUTROPHILS ABSOLUTE AUTO 17.63 K/mm3 (1.96-9.15); NEUTROPHILS PERCENT AUTO 78 % (41-73); NRBC ABSOLUTE 0.16 K/mm3 (0.00-0.02); NRBC Auto 0.7 /100 WBC (0.0-0.2); Platelet Count 148 K/mm3 (150-400); RDW Coefficient Variation 14.8 % (11.7-14.2); RDW Standard Deviation 50.5 fL (35.1-46.3); Red Blood Cell Count 3.02 M/mm3 (4.30-5.90); White Blood Cell Count 22.74 K/mm3 (4.00-11.30)
[2021-04-21 04:02] LABS: Albumin, Blood 2.3 g/dL (3.4-5.0); Albumin/Globulin Ratio 0.8 (0.8-1.8); Bilirubin, Total 0.7 mg/dL (0.1-1.0); Creatinine, Blood 3.07 mg/dL (0.60-1.20); Globulin, Blood 2.9 g/dL (2.2-4.0); Magnesium, Blood 1.9 mg/dL (1.6-2.4); Potassium, Blood 4.4 mmol/L (3.5-5.5); Total Protein, Blood 5.2 g/dL (6.4-8.2)
--- NOTE | 2021-04-21 06:14 | NUR ---
NO ACUTE EVENTS THIS SHIFT. HE WAS UNABLE TO SLEEP FOR MORE THAN AN HOUR OR TWO AT A TIME D/T INCREASED COUGHING. HE IS MORE ALERT AND ORIENTED, USING SUCTION AND URINAL BY SELF. DOES NOT USE CALL LIGHT, BUT ANSWERS QUESTIONS APPROPRIATELY AND FOLLOWING COMMANDS WELL. ABLE TO SHIFT HIPS IN BED FOR COMFORT INDEPENDENT. O2 REMAINS AT 2L NC, EXPIRATORY WHEEZE PRESENT AND USED PRN ALBUTEROL INHALER X2 WITH MINIMAL HELP. VSS. DRESSING CHANGE COMPLETED FOR RIGHT IJ. WILL REPORT TO ONCOMING SHIFT WHEN AVAILABLE.
--- NOTE | 2021-04-21 06:27 | NUR ---
DR. ARIZMENDI CALLED THIS AM. ORDERS TO DISCONTINUE BICARB GTT, KEEP NS AT 50ML/HR.
--- NOTE | 2021-04-21 08:05 | NUR ---
PATIENT AWAKE, MAKES NEEDS KNOWN, USES CALL LIGHT, INDEPENDANT WITH BSU, NPO FOR POSSIBLE US BIOPSY, MRI RESEARCHING PATIENTS HISTORY FOR METAL IN PATEINTS BODY, JOURNEYMAN ELECTRICIAN PV INSTALLER REPORTED HE WILL GET BACK TO RN WHEN EVERYTHING IS FOUND OF PATIENTS HISTORY. ODILIA
--- NOTE | 2021-04-21 10:17 | NUR ---
DR MAYES ROUNDED, NEW LAB ORDEREDS, INCREASED TORPOL XL AND GABAPENTIN. PATIENT IN US NOW FOR LIVER BIOPSY, REPORT FROM ROSELINE GARCIA, NO CONCERNS DURING PROCEDURE, WATCHING FOR BLEEDING OR CHANGES IN VS, WCTM
--- NOTE | 2021-04-21 10:27 | NUR ---
PATIENT BACK FROM US, USING BSU, BREAKFAST TRAY AT BEDSIDE
--- NOTE | 2021-04-21 18:24 | NUR ---
PATEINT ALERT, FORGETFUL, GRIMACES IN PAIN AT TIMES, MAKES NEEDS KNOWN, CALL LIGHT WITH IN REACH. LUNG SOUNDS COARSE, ENCOURAGED COUGH, 2L 02 VIA NC 98%, NO SOB. ST 100-120, SBP 152, MAP 99, DENIES CP, DOPLLER TO CRUZ FEET, LEFT FOOT TIBIAL PULSE ABSENT, PEDAL PULSE IN LEFT FOOT DOPPLERED, LEFT FOOT WORSE THAT RIGHT. LAST BM 04/16/2021, REPORTED TO DR MAYES, STARTED MIRALAX THIS PM, HYPERACTIVE BT. FREQUENT AND URGENT URINATION 100-200 AT A TIMES, YELLOW. R FEMORAL ANGIOSEAL IN PLACE CDI, NO HEMATOMAS, LIVER BIOPSY DONE TODAY, CORROSION CONTROL FITTER STILL RESEARCHING PATIENTS HISTORY TO FIND WHAT METAL IS IN THE PATIENTS BODY. FENTANYL RIVET MACHINE OPERATOR, NS @TKO, WILL RELAY TO PM RN, ODILIA
--- NOTE | 2021-04-21 23:58 | NUR ---
ZACKERY HAS BEEN TRYING TO SLEEP, SAYS HE HASN'T SLEPT MUCH IN THE PAST 2 DAYS. HE ASKED FOR A TREATMENT AFTER HE STARTED COUGHING. HE HOLLERS OUT WITH THE COUGHING. HIS SOFTWARE RELIABILITY ENGINEER CONTINUES. NO OTHER CHANGES.
[2021-04-22 05:18] LABS: BASOPHILS ABSOLUTE AUTO 0.06 K/mm3 (0.00-0.23); BASOPHILS PERCENT AUTO 0 % (0-2); EOSINOPHILS ABSOLUTE AUTO 0.11 K/mm3 (0.00-0.68); EOSINOPHILS PERCENT AUTO 1 % (0-6); Hematocrit 29.1 % (37.0-53.0); Hemoglobin 9.9 g/dL (13.5-17.5); IMMATURE GRAN ABSOLUTE AUTO 0.46 K/mm3 (0.00-0.10); IMMATURE GRAN PERCENT AUTO 3 % (0-1); LYMPHOCYTES ABSOLUTE AUTO 1.55 K/mm3 (0.84-5.20); LYMPHOCYTES PERCENT AUTO 8 % (21-46); MONOCYTES ABSOLUTE AUTO 3.09 K/mm3 (0.16-1.47); MONOCYTES PERCENT AUTO 17 % (4-13); Mean Corpuscular HGB 32.1 pg (26.0-34.0); Mean Corpuscular Volume 95 fL (80-100); Mean Platelet Volume 10.2 fL (9.1-12.4); NEUTROPHILS ABSOLUTE AUTO 13.24 K/mm3 (1.96-9.15); NEUTROPHILS PERCENT AUTO 72 % (41-73); NRBC ABSOLUTE 0.05 K/mm3 (0.00-0.02); NRBC Auto 0.3 /100 WBC (0.0-0.2); Platelet Count 178 K/mm3 (150-400); RDW Coefficient Variation 14.7 % (11.7-14.2); RDW Standard Deviation 50.5 fL (35.1-46.3); Red Blood Cell Count 3.08 M/mm3 (4.30-5.90); White Blood Cell Count 18.51 K/mm3 (4.00-11.30)
[2021-04-22 05:48] LABS: Albumin, Blood 2.1 g/dL (3.4-5.0); Albumin/Globulin Ratio 0.8 (0.8-1.8); Bilirubin, Total 0.9 mg/dL (0.1-1.0); Bun/Creatinine Ratio 16.7 (12.0-20.0); Calcium, Blood 8.1 mg/dL (8.5-10.1); Creatinine, Blood 2.76 mg/dL (0.60-1.20); Globulin, Blood 2.8 g/dL (2.2-4.0); Potassium, Blood 4.4 mmol/L (3.5-5.5); Total Protein, Blood 4.9 g/dL (6.4-8.2)
[2021-04-22 05:59] LABS: Carcinoembryonic Antigen 1.6 ng/mL (0.0-3.0)
[2021-04-22 06:03] LABS: Alpha Feto Protein, Tumor Mkr 11693.6 ng/mL (0.0-8.0); Cancer Antigen 19-9 <2.0 U/mL (2.0-37.0)
--- NOTE | 2021-04-22 06:27 | NUR ---
ZACKERY WAS ABLE TO SLEEP FOR A COUPLE OF HOURS VETERINARIAN ASSISTANT HOURS. HE WAS ABLE TO GET UP TO THE BSC WITH 2 PERSON ASSIST AND HAVE A BOWEL MOVEMENT. HE SAID HE FEELS SO MUCH BETTER. HE WAS ABLE TO TRANSFER BACK TO BED WITH 2 PERSON TRANSFER, HE DID COMPLAIN OF SHORTNESS OF BREATH AND ASKED FOR A BREATHING TREATMENT, ALTHOUGH HIS O2 SATS DID NOT DROP, HE WAS COACHED AND ENCOURAGED TO USE DEEP BREATHING EXERCISES. HE SPOKE WITH AND THEN PHONED HIS . HE HAS BEEN WITTY AND APPROPRIATE THIS SHIFT. CONTINUES ON THE FENTANYL AIR CONDITIONING COIL ASSEMBLER, USES THE BUTTON ON OCC. NS @ 50ML/HR. WILL CONTINUE TO MONITOR AND REPORT OFF TO NEXT SHIFT WHEN ABLE.
--- NOTE | 2021-04-22 07:35 | NUR ---
ASSUMED CARE: PT RESTING IN BED AT THIS TIME. SINUS TACH AT 101. DR BURDEN AT BEDSIDE WITH PT AT THIS TIME. NO ACUTE NEEDS AT PRESENT.
--- NOTE | 2021-04-22 07:52 | NUR ---
DR TAMEZ MADE PT AWARE OF TUMOR MARKERS ON LABS. PT DISCUSSED WITH HIS . PT WEARING 2L O2 VIA NC. DOPPLER USED TO FIND PULSES BILATERAL FEET. DR TAMEZ STATED HE WAS GOING TO DISCUSS PT WITH IR FURTHER TO DETERMINE IF INTERVENTION WAS NEEDED FOR BLOCKAGE IN LEG PER IMAGING STUDIES.
--- NOTE | 2021-04-22 11:40 | NUR ---
PHYSICAL THERAPY AT BEDSIDE
--- NOTE | 2021-04-22 14:14 | NUR ---
PT STATED DR WAS POSSIBLY GOING TO SEND HIM HOME TOMORROW. DUE TO PT STILL USING POSTAL WORKER PUMP, NURSE CHECKED IN WITH DR TAMEZ TO VERIFY THIS. STATES THAT DUE TO PT'S PAIN HE PLANS TO TRY TO TRANSITION PAIN MEDS TOMORROW AND WILL DOWN GRADE STATUS BUT NOT DC JUST YET. NO FURTHER NEEDS AT THIS TIME.
--- NOTE | 2021-04-22 16:44 | NUR ---
REPORT CALLED TO ANANTH SMALL. PT TRANSFERRED TO PCU 12. RN AWARE THAT PT STILL HAS CENTRAL LINE DUE TO TANK WAGON OPERATOR AND OTHER FLUIDS AND ABX. BOAT RIDE OPERATOR STATED OK FOR CENTRAL LINE TO STAY IN AT THIS TIME. DR TAMEZ PLANNING ON DC'ING TANK WAGON OPERATOR PUMP IN COMING DAYS.
--- NOTE | 2021-04-22 18:47 | NUR ---
PCU ARRIVAL / SHIFT SUMMARY PT BROUGHT TO PCU-12 BY BED FROM ICU @ APPROX 1700. PT A&O X4 W/ SOME NOTED FORGETFULNESS. PT VSS. SPO2 > 92% ON RA. MONITOR SHOWING ST, HR 100-110's. RIJ IN PLACE W/ NS GTT & FENTANYL BRANCH OPERATIONS MANAGER INFUSING PER ORDERS. PT DENIES PAIN AT THIS TIME & DENIES KNOWING PAIN MEDICATION INFUSING. PT STATING "I'M NOT AN ADDICT, I DON'T NEED IT. YOU CAN TURN IT OFF & I CAN GO HOME. I'LL BE MUCH MORE COMFORTABLE IN MY RECLINER CHAIR W/ MY DOG." PT RE-INFORMED OF MD PLAN FOR TITRATING PAIN MEDICATION PRIOR TO DISCHARGE HOME. PT AGREEABLE.
--- NOTE | 2021-04-23 00:14 | NUR ---
UPDATE PT REPORTS 10/05 PAIN NOT CONTROLLED BY CASINO SUPERVISOR PUMP AT 50 MCG/HR. ORDERS FOR ONE TIME DOSE OF 2MG DILAUDID IV X1. IF PT REPORTS RELIEF ORDERED TO CHANGE FENTANYL CASINO SUPERVISOR PUMP TO DILAUDID CASINO SUPERVISOR.
[2021-04-23 05:01] LABS: Hematocrit 30.4 % (37.0-53.0); Hemoglobin 10.1 g/dL (13.5-17.5)
[2021-04-23 05:21] LABS: Albumin, Blood 2.1 g/dL (3.4-5.0); Anion Gap 6 mmol/L (6-16); Blood Urea Nitrogen 44 mg/dL (8-24); Bun/Creatinine Ratio 16.4 (12.0-20.0); CO2, Blood 24 mmol/L (21-32); Calcium, Blood 8.2 mg/dL (8.5-10.1); Chloride, Blood 109 mmol/L (98-108); Creatinine, Blood 2.68 mg/dL (0.60-1.20); Glomerular Filtration Rate 24 (60-); Glucose, Blood 109 mg/dL (70-99); Magnesium, Blood 1.9 mg/dL (1.6-2.4); Phosphorus, Blood 2.9 mg/dL (2.5-4.9); Sodium, Blood 139 mmol/L (136-145)
--- NOTE | 2021-04-23 06:45 | NUR ---
SHIFT SUMMARY PT ALERT AND ORIENTED X 4. HR STABLE. BP STABLE. NO CP OR PRESSURE. PT REPORTS SEVERE PAIN DURING SHIFT IN R SIDE AND RIBS D/T CHEST COMPRESSIONS. PHYSICIAN NOTIFIED PT REPORTS 10/05-12/05 PAIN W/CONT FENTANYL FUNERAL COUNSELOR. NEW ORDERS TO D/C FENTANYL FUNERAL COUNSELOR AND START DILAUDID FUNERAL COUNSELOR. PT REPORTS RELIEF. SEE EHR FOR FUNERAL COUNSELOR SETTINGS. SEDATION SCORE Q HR AND VITAL SIGNS ASSESSED Q 1 HR WHILE ON FUNERAL COUNSELOR PUMP. PT TOLERATING WELL. VSS. PT ABLE TO TURN SELF IN BED. WILL CONT TO MONITOR UNTIL REPORT GIVEN TO DAYSHIFT RN.
--- NOTE | 2021-04-23 18:21 | NUR ---
SHIFT SUMMARY PT A&O X4. VSS. SPO2 > 92% ON RA. MONITOR SHOWING ST, HR 100-110's. PT DILAUDID KINDER TEACHER PUMP DC'd PER MD ORDER. PT NOW RECIEVING PRN PO OXYCODONE PER EMAR. PT W/ REQUEST FOR OXYCODONE X1 THIS SHIFT W/ IMPROVEMENT IN PAIN. FENTANYL PATCH IN PLACE. NS GTT INFUSING PER EMAR.
--- NOTE | 2021-04-23 19:32 | NUR ---
ASSUMED CARE OF PATIENT AT APPROXIMATELY 1905 FROM GEOVANNY Galloway RN. PATIENT ALERT AND ORIENTED X4; FORGETFUL AT TIMES. PATIENT UPSET ABOUT NOT RECIEVING ALBUTEROL INHALER RIGHT AWAY; RT NOTIFIED AND PATIENT RECIEVED INHALER; REPORTS HE WILL HAVE "SNEAK ONE UNDER THE MATTRESS"; "TO USE WHENEVER I WANT". PATIENT REPORTS PAIN IN UPPER ABDOMEN; MEDICATED PER EMAR. PATTIENT DENIES DIZZINESS AND NAUSEA. ST ON TELE; OXYGEN SATURATION ABOVE 90% ON ROOM AIR; COUGHING UP THICK WHITE SPUTUM; USING IS BEDSIDE. IVF INFUSING PER ORDER INTO CENTRAL LINE. POSSIBLE D/C PER REPORT IN AM.
[2021-04-24 04:05] LABS: Hematocrit 29.6 % (37.0-53.0); Hemoglobin 9.8 g/dL (13.5-17.5)
[2021-04-24 04:23] LABS: Anion Gap 6 mmol/L (6-16); Blood Urea Nitrogen 46 mg/dL (8-24); Bun/Creatinine Ratio 18.1 (12.0-20.0); CO2, Blood 24 mmol/L (21-32); Calcium, Blood 8.3 mg/dL (8.5-10.1); Chloride, Blood 108 mmol/L (98-108); Creatinine, Blood 2.54 mg/dL (0.60-1.20); Glomerular Filtration Rate 25 (60-); Glucose, Blood 105 mg/dL (70-99); Magnesium, Blood 1.9 mg/dL (1.6-2.4); Phosphorus, Blood 2.7 mg/dL (2.5-4.9); Potassium, Blood 4.1 mmol/L (3.5-5.5); Sodium, Blood 138 mmol/L (136-145)
--- NOTE | 2021-04-24 06:30 | NUR ---
PATIENT SLEPT ABOUT NINE HOURS LAST NIGHT; PO PAIN MEDICATION CONTROLLED PAIN T/O THE NIGHT. NO OTHER ACUTE CHANGES TO REPORT.
--- NOTE | 2021-04-24 09:30 | NUR ---
PT TRANSFERED TO SURGICAL UNIT FROM PCU. REPORT RECIEVED FROM TREY MAYEN RN. VSS, TACHYCARDIC BUT HAS BEEN T/O STAY. PT TRANSFERED TO BED W/ 1 P ASSIST. ORIENTED TO ROOM, CALL LIGHT IN REACH.
--- NOTE | 2021-04-24 18:10 | NUR ---
SHIFT SUMMARY PT ARRIVED FROM PCU ABOUT 0900. VS REMIAN STABLE, HR REMAINS IN LOW 100'S, TELE IN PLACE. 2L O2 PLACED FOR 89% O2, PT REQUESTED ALBUTEROL INH., RT CHANGED TO TID PT NEEDS IT MORE FREQ. PT RESTED IN BED T/O SHIFT, HAS CHEST PAIN D/T RIB FRACTURES FROM CPR, REPORTS IT TO BE VERY PAINFUL WHEN COUGHING & MOVING. DENIES PAIN & PAIN MEDS, SPLINTING W/ PILLOW. WILL HAVE LIVER BIOPSY TMRW. WILL REPORT TO ONCOMING RN.
[2021-04-25 04:48] LABS: Hematocrit 31.2 % (37.0-53.0); Hemoglobin 10.5 g/dL (13.5-17.5)
[2021-04-25 05:03] LABS: Albumin, Blood 2.1 g/dL (3.4-5.0); Anion Gap 8 mmol/L (6-16); Blood Urea Nitrogen 43 mg/dL (8-24); Bun/Creatinine Ratio 17.4 (12.0-20.0); CO2, Blood 20 mmol/L (21-32); Calcium, Blood 8.3 mg/dL (8.5-10.1); Chloride, Blood 110 mmol/L (98-108); Creatinine, Blood 2.47 mg/dL (0.60-1.20); Glomerular Filtration Rate 26 (60-); Glucose, Blood 108 mg/dL (70-99); Magnesium, Blood 1.8 mg/dL (1.6-2.4); Phosphorus, Blood 2.6 mg/dL (2.5-4.9); Potassium, Blood 4.2 mmol/L (3.5-5.5); Sodium, Blood 138 mmol/L (136-145)
--- NOTE | 2021-04-25 06:44 | NUR ---
SHIFT SUMMARY: PT IN BED AAOX4. VS STABLE. O2 2L VIA NC MAINTAINING O2 SAT AT 92-94% CENTERAL LINE RIGHT NECK PATENT FLUIDS INFUSING ORDERED. TELE MONITOR IN PLACE IN LOW 100'S. PAIN COMPLAINING OF CHEST AND RIB PAIN FROM CPR DONE A FEW DAYS AGO. MEDICATED PER EMAR FOR PAIN. PT REQUESTING ALBUTEROL FOR SOB. COUGHING PRESENT USING PILLOW TO SPLINT. LIVER BIOSPY TODAY. PT WAS NOT KEPT NPO. WILL NOTIFY IMAGING.
--- NOTE | 2021-04-25 08:00 | NUR ---
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 NO C/O PIAN AT THIS TIME. H/R REG, NO MURMER NOTED. PER TELE S TACH AT 113, PER TELE THIS IS PRETTY NORMAL FOR HIM. LUNGS CLER, RESP EAESY UNLABORED. ON2L L2. SOME RIB PAIN FROM PRIOR COMPRESSIONS. ABD MILD DISTENTION, SOME TENDER. PT STATES NOT SURE OF LAST BM. VOIDS PER URINAL. BLE EDEMA +3. PT STATES IS NEW FOR HIM. IS 1-2 ASST TO BSC. BED IN LOW POSITION, CALL LITE IN REACH, CALLS APPROP
[2021-04-25 08:31] LABS: BASOPHILS ABSOLUTE AUTO 0.06 K/mm3 (0.00-0.23); BASOPHILS PERCENT AUTO 0 % (0-2); EOSINOPHILS ABSOLUTE AUTO 0.13 K/mm3 (0.00-0.68); EOSINOPHILS PERCENT AUTO 1 % (0-6); Hematocrit 30.1 % (37.0-53.0); Hemoglobin 9.7 g/dL (13.5-17.5); IMMATURE GRAN ABSOLUTE AUTO 0.76 K/mm3 (0.00-0.10); IMMATURE GRAN PERCENT AUTO 4 % (0-1); LYMPHOCYTES ABSOLUTE AUTO 1.25 K/mm3 (0.84-5.20); LYMPHOCYTES PERCENT AUTO 6 % (21-46); MONOCYTES ABSOLUTE AUTO 1.74 K/mm3 (0.16-1.47); MONOCYTES PERCENT AUTO 8 % (4-13); Mean Corpuscular HGB 31.5 pg (26.0-34.0); Mean Corpuscular HGB Conc 32.2 g/dL (31.5-36.5); Mean Corpuscular Volume 98 fL (80-100); Mean Platelet Volume 9.3 fL (9.1-12.4); NEUTROPHILS ABSOLUTE AUTO 16.75 K/mm3 (1.96-9.15); NEUTROPHILS PERCENT AUTO 81 % (41-73); NRBC ABSOLUTE 0.02 K/mm3 (0.00-0.02); NRBC Auto 0.1 /100 WBC (0.0-0.2); Platelet Count 286 K/mm3 (150-400); RDW Coefficient Variation 15.2 % (11.7-14.2); RDW Standard Deviation 53.2 fL (35.1-46.3); Red Blood Cell Count 3.08 M/mm3 (4.30-5.90); White Blood Cell Count 20.69 K/mm3 (4.00-11.30)
[2021-04-25 08:43] LABS: Albumin/Globulin Ratio 0.7 (0.8-1.8); Bilirubin, Total 1.4 mg/dL (0.1-1.0); Bun/Creatinine Ratio 17.4 (12.0-20.0); Calcium, Blood 8.3 mg/dL (8.5-10.1); Creatinine, Blood 2.42 mg/dL (0.60-1.20); Globulin, Blood 2.9 g/dL (2.2-4.0); Potassium, Blood 3.8 mmol/L (3.5-5.5); Total Protein, Blood 4.9 g/dL (6.4-8.2)
[2021-04-25 08:45] LABS: International Normalized Ratio 1.15
--- NOTE | 2021-04-25 10:33 | NUR ---
TO CT GUIDED BIOPSY
--- NOTE | 2021-04-25 17:32 | NUR ---
Received referral from [facility] Superintendent Maintenance (Cintiha Foster) on 04/25/2021. Patient is to discharge 04/26/2021 with orders for home health and elected [facility]. Contacted patient's (Rodríguez Arriaga) to further discuss the above. Patient's is agreeable to the above. Discussed homebound status definition with patient's . Patient's verbalized understanding. Discussed what home health is vs what it is not (in home caregivers/housekeeping). Patient's verbalized understanding. Discussed the next steps in the process of an initial assessment to determine frequency of visits. Again patient's verbalized understanding. Offered a chance for patient's to ask questions regarding the above of which there were none. At this time patient has no discharge orders entered. Will continue to monitor and follow for discharge. Jo Ann Drake Referral Liaison
--- NOTE | 2021-04-25 18:22 | NUR ---
PT PLEASANT TODAY. DID HAVE LIVER BIOPSY TODAY. BP STABLE SINCE. PT ABLE TO STAND AND GET TO BSC THIS AFT. 1 ASST. AT BEDSIDE THIS AFT. PAIN MEDS ARE MANAGING HIS PAIN PER HIS SATISFACTION. EXPECTING HOME TOMORROW. NO NEW CONCERNS NTOED BED IN LOW POSITOIN, CALL LITE IN REACH, CALLS APPROP
--- NOTE | 2021-04-25 19:28 | NUR ---
RECEIVED REPORT AND ASSUMED CARE OF PT. HE WAS LYING IN BED WITH HIS O2 TUBING ON THE FLOOR. O2 SATS BETWEEN 88 AND 90% ORA. O2 REPLACED WITH CLEAN TUBING. PT REPORTS SOB IMPROVING, DOES STILL INCREASE WITH MOVEMENT/AMBULATION. HE DENIES ANY NEEDS AT THIS TIME. WCTM.
--- NOTE | 2021-04-26 05:58 | NUR ---
SHIFT SUMMARY: ZACKERY IS A&OX3-4, OCCASIONAL CONFUSION TO PLACE NOTED, HOWEVER, PT REORIENTS EASILY. VSS, NO ACUTE EVENTS OVERNIGHT. HE REPORTS A STRONG HOPE AND DESIRE TO BE DISCHARGED HOME TODAY. 1-2 PERSON ASSIST TO THE BEDSIDE COMMODE. BED ALARM ON FOR SAFETY. HE DID HAVE TWO INSTANCES WHEN HE BECAME SHORT OF BREATH AND SAT UP AT THE BEDSIDE AND REQUESTED HIS RESCUE INAHLER. TOLERATING PO INTAKE WELL, ADEQUATE URINE OUTPUT. HE STATES THAT HE HAS A WALKER AT HOME, HAS ONLY TWO SHALLOW STEPS TO GET INTO HIS HOME, THAT HE HAS AN EASILY ACCESIBLE BATHROOM, AND THAT HIS IS HOME WITH HIM. HE IS SITTING UP IN BED WITH THE CALL LIGHT IN REACH. WILL REPORT TO DAY SHIFT RN.
[2021-04-26 08:33] LABS: Albumin, Blood 1.8 g/dL (3.4-5.0); Anion Gap 5 mmol/L (6-16); Blood Urea Nitrogen 44 mg/dL (8-24); Bun/Creatinine Ratio 16.9 (12.0-20.0); CO2, Blood 24 mmol/L (21-32); Chloride, Blood 109 mmol/L (98-108); Creatinine, Blood 2.61 mg/dL (0.60-1.20); Glomerular Filtration Rate 25 (60-); Glucose, Blood 126 mg/dL (70-99); Phosphorus, Blood 2.4 mg/dL (2.5-4.9); Potassium, Blood 3.6 mmol/L (3.5-5.5); Sodium, Blood 138 mmol/L (136-145)
[2021-04-26] MEDS ORDERED: AIRDUO RESPICL1 EAC4 INH (11:39)
[2021-04-26] MEDS ORDERED: FURO40 PO (11:39)
[2021-04-26] MEDS ORDERED: GABA300 PO (11:41)
[2021-04-26] MEDS ORDERED: OXYC10TA19 PO (11:42)
[2021-04-26] MEDS ORDERED: PANT40 PO (11:43)
[2021-04-26] MEDS ORDERED: LACT PO (11:44)
[2021-04-26] MEDS ORDERED: MIRALAX17 GM PO (11:44)
[2021-04-26] MEDS ORDERED: POTA10T PO (14:38)
--- NOTE | 2021-04-26 15:42 | NUR ---
Patient now has discharge orders entered. Gathered all supporting documentation for referral (face sheet, face to face, med list, H&P, and most recent PT assessment) and sent to [facility] for review. No further interventions required. Jo Ann Drake Referral Liaison
--- NOTE | 2021-04-26 16:41 | NUR ---
DISCHARGE INSTRUCTIONS COMPLETED AND DISCUSSED WITH PT EXPRESSING UNDERSTANDING. SCRIPTS FAXED TO [facility] [address]. HOME O2 EVAL COMPLETED AND O2 NEEDED FOR THE HOME SETTING. DELIVERED BY [facility] TO ROOM. CENTRAL LINE REMOVED. TO [facility] VIA W/C.
--- NOTE | 2021-04-27 08:20 | NUR ---
Per Dr. Jazlyn Valentine discharge appropriate. Patient does not oppose discharge. Patient discharged home to residence with home health. [facility] Home Health Liaison notified of discharge and to initiate Home Health services per discharge orders. Date of discharge: 04/26/2021 Date of admission: 04/17/2021 Provisional diagnosis at time of admission: CAD (coronary artery disease) Final Diagnosis at time of discharge: CAD (coronary artery disease) Transportation provided by: Family/ Location: [address] [place] [address] DME Ordered: Oxygen and Front wheeled walker Follow-ups needed: [facility] JO[facility] ROBERTO will contact patient to schedule hospital follow-up visit. Reinforced need to attend follow-up visit with telehealth option if needed. Confirmed numbers: Patient [phone] Rodríguez [phone] Provider/PCP: Dr. Micah Miller When: WITHIN 1 WEEK Specialty: follow-up with oncology Comment: Explained to patient to contact PCP if any questions regarding medication management, social service needs, and if condition worsens go to Urgent Care/ER. No barriers to discharge. Patient has a strong support network. Patient is a .
== END 2021-04-26 16:00 | disposition home or self-care (01) | DRG 423 ==
LOC: ER 14:28 → PCU 14:29 → ICUW 14:29 → PCU 19:47 → ICUW 04-17 01:35 → PCU 04-22 16:44 → SURS 04-24 09:28
PROVIDERS: Family Medicine; Hospitalist; Internal Medicine; Internal Medicine Critical Care Medicine; Internal Medicine Nephrology; Physician Assistant; ADMIT Internal Medicine
PROC: 30233N1 Transfusion of Nonautologous Red Blood Cells into Peripheral Vein, Percutaneous Approach (ICD-10-PCS; principal; 2021-04-17)
PROC: 3E033XZ Introduction of Vasopressor into Peripheral Vein, Percutaneous Approach (ICD-10-PCS; 2021-04-17)
PROC: 0BH17EZ Insertion of Endotracheal Airway into Trachea, Via Natural or Artificial Opening (ICD-10-PCS; 2021-04-17)
PROC: 5A1945Z Respiratory Ventilation, 24-96 Consecutive Hours (ICD-10-PCS; 2021-04-17)
PROC: 04L33DZ Occlusion of Hepatic Artery with Intraluminal Device, Percutaneous Approach (ICD-10-PCS; 2021-04-20)
PROC: 0FB13ZX Excision of Right Lobe Liver, Percutaneous Approach, Diagnostic (ICD-10-PCS; 2021-04-26)
DX: C22.7 Other specified carcinomas of liver (principal); R57.8 Other shock; J96.01 Acute respiratory failure with hypoxia; I46.8 Cardiac arrest due to other underlying condition; I46.2 Cardiac arrest due to underlying cardiac condition; K72.00 Acute and subacute hepatic failure without coma; N17.9 Acute kidney failure, unspecified; E87.2 Acidosis; M96.89 Other intraoperative and postprocedural complications and disorders of the musculoskeletal system; D62 Acute posthemorrhagic anemia; Z53.29 Procedure and treatment not carried out because of patient's decision for other reasons; Z20.822 Contact with and (suspected) exposure to COVID-19; E83.39 Other disorders of phosphorus metabolism; B19.20 Unspecified viral hepatitis C without hepatic coma; I25.10 Atherosclerotic heart disease of native coronary artery without angina pectoris; J44.9 Chronic obstructive pulmonary disease, unspecified; D63.1 Anemia in chronic kidney disease; R73.03 Prediabetes; E87.70 Fluid overload, unspecified; I70.222 Atherosclerosis of native arteries of extremities with rest pain, left leg; R16.0 Hepatomegaly, not elsewhere classified; I12.9 Hypertensive chronic kidney disease with stage 1 through stage 4 chronic kidney disease, or unspecified chronic kidney disease; N18.30 Chronic kidney disease, stage 3 unspecified; E78.5 Hyperlipidemia, unspecified; Z95.5 Presence of coronary angioplasty implant and graft; Z98.1 Arthrodesis status; Z85.828 Personal history of other malignant neoplasm of skin; Z88.6 Allergy status to analgesic agent; Z88.8 Allergy status to other drugs, medicaments and biological substances; Z87.891 Personal history of nicotine dependence; Y84.8 Other medical procedures as the cause of abnormal reaction of the patient, or of later complication, without mention of misadventure at the time of the procedure
CPT/HCPCS: 0241U; 31500; 36247; 36415; 36430; 36556; 37244; 47000; 51702; 70450; 71045; 74150; 74176; 75726; 75774; 76937; 76942; 77012; 80048; 80053; 80069; 81001; 82105; 82330; 82378; 82803; 82947; 83690; 83735; 84100; 85014; 85018; 85025; 85027; 85610; 85730; 86301; 86850; 86900; 86901; 86923; 87040; 87086; 88307; 88341; 88342; 92950; 93005; 93010; 93926; 94002; 94003; 94640; 94664; 94668; 94760; 94761; 96374; 96375; 96376; 97110; 97116; 97162; 97166; 97530; 97535; 99285-25; A9270; C1751; C1760; C1769; C1887; C9113; G0378; J0171; J0696; J0881; J1170; J1200; J1644; J1720; J1885; J1940; J2250; J2405; J2704; J2765; J3010; J7030; J7050; J7060; J7070; J7120; P9016; Q9967

== ENCOUNTER 2021-05-04 16:01 | Inpatient (IN) | payer OTHER, MEDICARE ==
[~2021-05-04] VITALS: Ht 182.9 cm; Wt 72.6 kg
[~2021-05-04 16:01] MED LIST changes: +AIRDUO RESPICL1 EAC4 INH; +FURO40 PO; +GABA300 PO; +LACT PO; +MIRALAX17 GM PO; +OXYC10TA19 PO; +PANT40 PO; +POTA10T PO
[2021-05-04 16:33] LABS: BASOPHILS ABSOLUTE AUTO 0.11 K/mm3 (0.00-0.23); BASOPHILS PERCENT AUTO 1 % (0-2); EOSINOPHILS ABSOLUTE AUTO 0.04 K/mm3 (0.00-0.68); EOSINOPHILS PERCENT AUTO 0 % (0-6); Hematocrit 30.4 % (37.0-53.0); Hemoglobin 9.9 g/dL (13.5-17.5); IMMATURE GRAN PERCENT AUTO 1 % (0-1); LYMPHOCYTES ABSOLUTE AUTO 1.07 K/mm3 (0.84-5.20); LYMPHOCYTES PERCENT AUTO 6 % (21-46); MONOCYTES ABSOLUTE AUTO 1.94 K/mm3 (0.16-1.47); MONOCYTES PERCENT AUTO 11 % (4-13); Mean Corpuscular HGB Conc 32.6 g/dL (31.5-36.5); Mean Corpuscular Volume 98 fL (80-100); NEUTROPHILS ABSOLUTE AUTO 14.87 K/mm3 (1.96-9.15); NEUTROPHILS PERCENT AUTO 82 % (41-73); Platelet Count 429 K/mm3 (150-400); RDW Coefficient Variation 14.8 % (11.7-14.2); RDW Standard Deviation 53.4 fL (35.1-46.3); Red Blood Cell Count 3.09 M/mm3 (4.30-5.90); White Blood Cell Count 18.13 K/mm3 (4.00-11.30)
[2021-05-04 16:51] LABS: Albumin, Blood 2.4 g/dL (3.4-5.0); Albumin/Globulin Ratio 0.5 (0.8-1.8); Bilirubin, Total 1.2 mg/dL (0.1-1.0); Bun/Creatinine Ratio 12.8 (12.0-20.0); Calcium, Blood 8.4 mg/dL (8.5-10.1); Creatinine, Blood 3.13 mg/dL (0.60-1.20); Globulin, Blood 4.7 g/dL (2.2-4.0); Potassium, Blood 4.6 mmol/L (3.5-5.5); Total Protein, Blood 7.1 g/dL (6.4-8.2)
[2021-05-04 17:49] LABS: Influenza A, PCR NEGATIVE (NEGATIVE); Influenza B, PCR NEGATIVE (NEGATIVE); Resp Syncytial Virus, PCR NEGATIVE (NEGATIVE); SARS-Cov-2 (COVID-19) PCR, MMC NEGATIVE (NEGATIVE)
[2021-05-04 18:48] LABS: Source, Urine Clean Catch
[2021-05-04 18:58] LABS: Bilirubin, Urine Neg (Neg); Blood, Urine 3+ (Neg); Glucose Qualitative, Urine Neg (Neg); Ketones, Urine Neg (Neg); Leukocyte Esterase, Urine Neg (Neg); Nitrite, Urine Neg (Neg); Protein, Urine 1+ (Neg); Urobilinogen, Urine 1+ (Normal)
[2021-05-04 19:06] LABS: Appearance, Urine Clear (Clear); Color, Urine Pale Yellow (P-Yellow)
[2021-05-04 19:07] LABS: Bacteria Rare /hpf; Squamous Epithelial Cells Rare /hpf (Few); White Blood Cells, Urine 0-2 /hpf (0-5)
[2021-05-04 23:10] LABS: CHOL/HDL RATIO 4.9; Cholesterol 117 mg/dL (50-200); HDL Cholesterol 24 mg/dL (>39); Low Density Lipoprotein Chol 72 mg/dL (0-110); Triglycerides 106 mg/dL (30-160); Very Low Density Lipoprot Chol 21 mg/dL (6-32)
--- NOTE | 2021-05-05 04:45 | NUR ---
SHIFT SUMMARY RECEIVED PT FROM ED AT 2144, PT ALERT TO PERSON ONLY, COOPERATIVE, GENERALIZED WEAKNESS WITH UNSTEADY GAIT NOTED,TELEMETRY INTACT AND IN ST WITH HR 120'S AT REST BUT GETS UP TO 140'S WHEN OOB, DR. KEYES MADE AWARE AND ORDER RECEIVED TO CALL IF HR SUSTAINS >130 AND PT HASN'T THIS SHIFT, PT HAS MULTIPLE BRUISES ON BACK AND ARMS, RT. LOWER LEG HAS A OPEN AREA WITH WHITE TISSUE IN CENTER OF WOUND WITH REDNESS AROUND WOUND AND NO ODOR OR DRAINAGE PRESENT AND WOUND IS DRY, LT. GREAT TOE HAS DARK TISSUE WITH REDNESS NOTED AND REDNESS NOTED ON LT. FOOT, NO C/O PAIN ,INCONTINENT OF URINE,BED ALARM ON AND PT DOESN'T CALL OUT APPROPRIATELY, SR UP X3, NO ACUTE DISTRESS NOTED.
[2021-05-05 05:04] LABS: BASOPHILS PERCENT AUTO 1 % (0-2); EOSINOPHILS ABSOLUTE AUTO 0.01 K/mm3 (0.00-0.68); EOSINOPHILS PERCENT AUTO 0 % (0-6); Hematocrit 29.7 % (37.0-53.0); Hemoglobin 9.6 g/dL (13.5-17.5); IMMATURE GRAN ABSOLUTE AUTO 0.17 K/mm3 (0.00-0.10); IMMATURE GRAN PERCENT AUTO 1 % (0-1); LYMPHOCYTES ABSOLUTE AUTO 1.04 K/mm3 (0.84-5.20); LYMPHOCYTES PERCENT AUTO 5 % (21-46); MONOCYTES ABSOLUTE AUTO 1.98 K/mm3 (0.16-1.47); MONOCYTES PERCENT AUTO 10 % (4-13); Mean Corpuscular HGB 31.6 pg (26.0-34.0); Mean Corpuscular HGB Conc 32.3 g/dL (31.5-36.5); Mean Corpuscular Volume 98 fL (80-100); Mean Platelet Volume 9.7 fL (9.1-12.4); NEUTROPHILS ABSOLUTE AUTO 16.23 K/mm3 (1.96-9.15); NEUTROPHILS PERCENT AUTO 83 % (41-73); Platelet Count 378 K/mm3 (150-400); RDW Coefficient Variation 14.7 % (11.7-14.2); RDW Standard Deviation 52.8 fL (35.1-46.3); Red Blood Cell Count 3.04 M/mm3 (4.30-5.90); White Blood Cell Count 19.53 K/mm3 (4.00-11.30)
[2021-05-05 05:25] LABS: Bun/Creatinine Ratio 12.4 (12.0-20.0); Calcium, Blood 8.5 mg/dL (8.5-10.1); Creatinine, Blood 2.99 mg/dL (0.60-1.20); Potassium, Blood 3.8 mmol/L (3.5-5.5)
--- NOTE | 2021-05-05 11:53 | NUR ---
Summary of initial pt visit and multiple case conferences with RN, , CM and phone conversation with pt's , Rodríguez. Pt dosing but woke easily upon entering his room this am around 9. He was agreeable to me visiting at bedside to discuss his desired plan of care and advanced care planning. Initially, pt appeared clear headed, alert and oriented. Within 5 minutes he was dozing, twitching and some verbalizations were garbled at times. He is clear that he wants to be home TARA. He was clear that he wants to discuss tx options for newly dx hepatocellular liver mass. , in our phone conversation states pt has an oncology kathya with Dr Shipley on Sunday the and a PET scan scheduled as an OP on the . She is unsure how she can get pt to these appointments due to pt's weekness. They have had [facility] nursing and therapies visiting since d/c approx a week ago and are very happy with this care and support in the home. Pt would prefer no visitors but expressed deep gratitude for the staff visiting and helping, explaining care etc to . Pt indicated that he would not want another resucitation effort as he is still hurting from previous one three weeks ago. At this point in our conversation pt appeared alternately very anxious or dozing off. I reviewed prev admit notes and spoke with who states they wanted to complete a POLST but have not and that she understands her would prefer DNR status from many prevous conversations and recently also. She reports that pt does get confused and sometimes when someone asks him he states "Yes, full code". She plans to come in and review with him for clarity for us. When I returned to pt's room to deliver a blank POLST as planned with , had rounded and per RN, pt expressed wishes for DNR. I called to obtain VO and entered new DNR code status. Pt's expressed interest in palliative care/hospice in the future. She and her cared for his sister when she was going thru tx for and then of lung cancer. She states her would not have previously wanted to live like this. She has a good understanding of the risks vs benefit from her conversations with Drs when Liver mass and Cancer was dx on previous admit and that his severe cardiac disease, renal failure and now s/s of liver dysfunction due to cancer all affect outcomes. She is going to make the oncology appointment a priority so they have all the info to make a decision re: pursuing tx of cancer vs. palliative care at home. invited to have me paged when she is here or to call me with any further questions or desire for additional conversation. came in to visit and POL reviewed. Will await Dr mcfarlane and then process.
--- NOTE | 2021-05-05 12:12 | NUR ---
DR. BAUGH WAS CALLED PATIENT'S IS IN THE ROOM AND WANTS AN UPDATE ON STUDIES AND PLAN OF CARE. AND PATIENT WOULD LIKE TO FINISH TALKING ABOUT CODE STATUS WITH PATIENT AND . PROVIDER STATED THAT HE WOULD TRY TO COME BY WITHIN THE HOUR MORE OR LESS.
--- NOTE | 2021-05-05 12:14 | NUR ---
PATIENT HAS VARIATIONS IN ORIENTATION STATUS. PATIENT HAS MOST DIFFICULTY WITH SHORT TERM MEMORY AND SITUATION. PATIENT KNOWS HES IN THE HOSPITAL BUT THOUGHT HE WAS IN [place] OR. PATIENT IS ORIENTED TO SELF BDAY AND SIGNIFICANT OTHER. PATIENT AND TALKED TO MD AND PALLITIVE ABOUT CODE STATUS TODAY.
--- NOTE | 2021-05-05 14:54 | NUR ---
SIGNED, COMPLETED POLST sent to Medical records for scanning into EMR. Copy and original placed on pt's chart to send home with him on d/c. Dr Shipley rounded this afternoon. Please see his note re: consult, plan of care, recommendations for hospice care on d/c, estimated prognosis of 6-12 weeks. HH/healthcare liaison updated. Pt is currently on [facility] services and could be transitioned to Hospice after d/c if pt/ agree with plan. indicated to me earlier that she felt it may be time due to pt's confusion, increasing weakness and stated desire in long standing conversations that he would "not want to live like this". I will f/u with pt/ tomorrow.
--- NOTE | 2021-05-05 16:49 | NUR ---
Third visit today. has returned to bedside. Both she and pt are tearful and holding hands. Support offered. Discussed their visit with Dr Shipley after reviewing his PN of today and talking with him by phone. Pt/ confirm that they would like to have Hospice at home on d/c from hospital but would like to treat current infection pt was admitted for. is cancelling testing and Dr appointments scheduled for next week. I was able to give her the original POLST form to take home in the event EMS were called to the home. Pt/ requests [facility]. They were notified thru liaison. contacted and VO obtained for Hospice referral and for Benedryl prn. Pt reported itching that may be from medications or from Liver CA s/s. Pt also reported sore gums from dentures. I brought him a cold pudding to soothe gums and palate. He had removed his dentures. Pt and appear mutually supportive and loving to one another. Planned to check in with them tomorrow.
[2021-05-06 06:00] LABS: Hematocrit 30.4 % (37.0-53.0); Hemoglobin 9.7 g/dL (13.5-17.5)
[2021-05-06 06:28] LABS: Albumin, Blood 2.2 g/dL (3.4-5.0); Anion Gap 9 mmol/L (6-16); Blood Urea Nitrogen 39 mg/dL (8-24); Bun/Creatinine Ratio 12.1 (12.0-20.0); CO2, Blood 30 mmol/L (21-32); Calcium, Blood 8.4 mg/dL (8.5-10.1); Chloride, Blood 100 mmol/L (98-108); Creatinine, Blood 3.22 mg/dL (0.60-1.20); Glomerular Filtration Rate 19 (60-); Glucose, Blood 102 mg/dL (70-99); Magnesium, Blood 1.5 mg/dL (1.6-2.4); Phosphorus, Blood 2.7 mg/dL (2.5-4.9); Potassium, Blood 3.1 mmol/L (3.5-5.5); Sodium, Blood 139 mmol/L (136-145)
--- NOTE | 2021-05-06 07:42 | NUR ---
SHIFT SUMMARY PT A/O TO PERSON AND PLACE, FOLLOWS COMMANDS, ONLY CALLED OUT APPROPRIATELY ONCE THIS SHIFT, SR/ST ON TELEMETRY AND WHEN PT GOT UP HR WENT UP TO 150'S BUT DID NOT SUSTAIN,GENERALIZED WEAKNESS NOTED, DENIES ANY PAIN, BLE ELEVATED, REDNESS ON LEFT FOOT IMPROVING, NO ACUTE DISTRESS NOTED.
--- NOTE | 2021-05-06 10:46 | NUR ---
PATIENT IS CONSITENTLY MORE ORIENTED 4X. PATIENT IS CONFUSED AT TIMES AND DOES NOT ALLWAYS CALL FOR HELP OUT OF BED DUE TO HIGH FALL RISK. PATIENT HAS SIGNIFICANT DECREASE IN REDNESS OF LEFT FOOT AND TOE. RIGHT LEG IO SITE REMAINS RED WITH WITH WHITE PUSS WITHOUT DRAINAGE. PATIENT HAPPY INSTEAD OF AGGITATED TODAY.
--- NOTE | 2021-05-06 11:22 | NUR ---
[facility] Care f/u visit. Pt denies pain but does not appear comfortable in bed. He reports toe and foot discomfort/pain. I assisted with repositioning foot with more pillow cushion underneeth feet and between foot board. Pt wakeful and and alert/conversant but was rambling uninteligibly at times. No visitors at bedside. His only request is "my release papers, please".
--- NOTE | 2021-05-06 15:51 | NUR ---
Supportive visit with pt's outside of pt's room. Connected her with the regional liaison, who had been trying to reach her. Plan is for d/c home tomorrow with [facility]. 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 demonstrating and verbalizing CG fatigue and feeling overwhelmed. She is grateful d/c is not happening until tomorrow.
--- NOTE | 2021-05-06 16:01 | NUR ---
Received notification from [facility] food beverage server (Cady Villeda) that patient is hospice appropriate and able to be accepted onto service post discharge. Will attempt to meet with patient and family today to further discuss the above. Will continue to monitor and follow for discharge. Jo Ann Drake Referral Liaison
--- NOTE | 2021-05-06 16:02 | NUR ---
Met with patient and (Rodríguez Arriaga) further hospice services and election of [facility]. Patient and is agreeable to the above. Discussed what hospice is (reserved for patients with a terminal diagnosis with life expectancy of 6 months or less). Discussed that some patients exceed the 6 months expectancy and stay on service while other patients may stabilize and come off hospice. Patient and verbalized understanding of the above. Discussed with patient and that hospice service focuses on quality of life at the end of life and that rather than measuring the quantity of days, the quality of those days would be measured. Discussed with patient and that with hospice service the goal would be to keep the patient out of the hospital and comfortable by managing symptoms at home. Patient and verbalized understanding. Discussed the people, prescriptions, and equipment of hospice. People- discussed the team of people and their roles (RNs, chaplains, therapists, LCSWs, CNAs, and volunteers) that would be there to support not only the patient but also their family during this time. Explained to the patient and that the team would be custom tailored to the patient needs during this time. Patient and verbalized understanding. Prescriptions- discussed that we utilize a mail order pharmacy ([facility]) to provide medications related to the hospice diagnosis and for symptom management. All other medications that patient chose to stay on would be patient's and/or patient's family's responsibility to provide and pay for. Patient and verbalized understanding. Discussed that this write would provide patient's with three prescriptions today- 05/06/2021, one for hydromorphone 1mg/mL #90mL (1.25mL - 5mL PO/SL Q2H PRN SOB/pain), one for lorazepam 0.5mg #20 (1 - 2 PO Q4H PRN anxiety), and one for hyoscyamine 0.125mg SL tablets #30 (1 SL Q2H PRN secretions). Explained to the patient and that as patient would not yet be admitted to hospice service at the time of discharge those prescriptions would be patient/patient's family's responsibility to fill and pay for. Patient and verbalized understanding. Equipment- discussed with patient and that we contract through [employer] to provide DME such as hospital beds, commodes, etc. to patient. Patient and verbalized understanding. At this time patient's would like for the admitting RN to assess for equipment needs and place the order at admission. Discussed with patient and that once patient was admitted onto hospice services the goal would be for them to contact us ([facility]) over contacting 911 or presenting back to the hospital/ED. Patient and verbalized understanding. Discussed the tentative discharge plans for Sunday- 05/07/2021 at 1200 with preferred method of transport- private vehicle transport provided by patient's . Offered a chance for patient and to ask questions regarding the above of which there were none. Will continue to monitor and follow as appropriate for discharge. Jo Ann Drake Referral Liaison
--- NOTE | 2021-05-06 16:08 | NUR ---
DR. TAMEZ GAVE VERB WITH READBACK OF DOSE INCREASE TO [facility] 10/325 Q6H PRN PO FOR PAIN. AT APPROX 1045AM
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
[2021-05-07 04:54] LABS: Hematocrit 31.9 % (37.0-53.0); Hemoglobin 10.1 g/dL (13.5-17.5)
[2021-05-07 05:29] LABS: Albumin, Blood 2.1 g/dL (3.4-5.0); Anion Gap 7 mmol/L (6-16); Blood Urea Nitrogen 38 mg/dL (8-24); Bun/Creatinine Ratio 10.6 (12.0-20.0); CO2, Blood 31 mmol/L (21-32); Calcium, Blood 8.2 mg/dL (8.5-10.1); Chloride, Blood 104 mmol/L (98-108); Creatinine, Blood 3.57 mg/dL (0.60-1.20); Glomerular Filtration Rate 17 (60-); Glucose, Blood 112 mg/dL (70-99); Magnesium, Blood 1.4 mg/dL (1.6-2.4); Phosphorus, Blood 2.9 mg/dL (2.5-4.9); Potassium, Blood 3.2 mmol/L (3.5-5.5); Sodium, Blood 142 mmol/L (136-145)
[2021-05-07] MEDS ORDERED: LORA1 PO (10:09)
[2021-05-07] MEDS ORDERED: AMOCLA500 PO (10:09)
--- NOTE | 2021-05-07 11:40 | NUR ---
DISCHARGE PT A&O X3 DURING D/C DIRECTION. @ BEDSIDE. PROVIDED W/ VERBAL AND WRITTEN DIRECTION. HOSPICE NURSE ASHLEY CONTACTED AND PROVIDED W/ BRIEF PT REPORT. PT AND SPOUSE VERBALIZED UNDERSTANDING. ABX FAXED TO [facility], HARD COPY FOR LORAZAPAM AND OXYCODONE PROVIDED IN DC FOLDER TO PT SPOUSE. SPOUSE PROVIDED TRANSPORT. LENNOX SESAY ESCORTED PT OUT TO [facility] VIA .
== END 2021-05-07 11:30 | disposition hospice, home (50) | DRG 872 ==
LOC: ER 16:01 → MEDS 16:02 → ENPENDDIS 05-07 09:45 → MEDS 05-07 11:30
PROVIDERS: Emergency Medicine; Internal Medicine Nephrology; ADMIT Family Medicine
DX: A41.9 Sepsis, unspecified organism (principal); L03.116 Cellulitis of left lower limb; C22.0 Liver cell carcinoma; N18.4 Chronic kidney disease, stage 4 (severe); N17.9 Acute kidney failure, unspecified; E87.1 Hypo-osmolality and hyponatremia; I25.10 Atherosclerotic heart disease of native coronary artery without angina pectoris; Z28.21 Immunization not carried out because of patient refusal; Z20.822 Contact with and (suspected) exposure to COVID-19; J44.9 Chronic obstructive pulmonary disease, unspecified; E78.5 Hyperlipidemia, unspecified; E87.6 Hypokalemia; K72.90 Hepatic failure, unspecified without coma; E86.9 Volume depletion, unspecified; D63.1 Anemia in chronic kidney disease; R65.20 Severe sepsis without septic shock; I73.9 Peripheral vascular disease, unspecified; D75.839 Thrombocytosis, unspecified; B19.20 Unspecified viral hepatitis C without hepatic coma; I12.9 Hypertensive chronic kidney disease with stage 1 through stage 4 chronic kidney disease, or unspecified chronic kidney disease; Z87.891 Personal history of nicotine dependence; Z85.828 Personal history of other malignant neoplasm of skin; I25.2 Old myocardial infarction; Z95.1 Presence of aortocoronary bypass graft; Z95.5 Presence of coronary angioplasty implant and graft; Z98.1 Arthrodesis status; Z91.041 Radiographic dye allergy status; Z88.5 Allergy status to narcotic agent; Z79.899 Other long term (current) drug therapy
CPT/HCPCS: 0241U; 36415; 71045; 73620; 74176; 76705; 80048; 80053; 80061; 80069; 81001; 83605; 83735; 85014; 85018; 85025; 86141; 86850; 86900; 86901; 87040; 94640; 94664; 94760; 96365; 96366; 96375; 96376; 99285-25; A9270; G0378; J0881; J2543; J3370; J7030; J7050; J7120